=== PATIENT | male | born 1945 | race Caucasian/White ===

== ENCOUNTER 2017-06-27 07:11 | Inpatient (IN) ==
[2017-06-27] MEDS ORDERED: 0.9 % SODIUM CHLORIDE 250 ML IV SCH ×2 (07:15→12:30)
[2017-06-27] MEDS ORDERED: 0.9 % SODIUM CHLORIDE 1,000 ML IV ONE ×2 (07:29)
[2017-06-27 08:19] LABS: Basophils # (Auto) 0 K/mcL (0.0-0.3); Basophils % (Auto) 0.3 % (0.0-2.0); Eosinophils # (Auto) 0.1 K/mcL (0.0-0.7); Eosinophils % (Auto) 1.4 % (0.0-7.0); Granulocytes % (Auto) 74.2 % (38.0-78.0); Lymphocytes # (Auto) 1.1 K/mcL (1.5-4.8); Mean Cell Volume 88.1 fL (80.0-100.0); Mean Corpuscular HGB Conc 32.6 g/dL (31.0-36.0); Mean Corpuscular Hemoglobin 28.7 pg (26.0-34.0); Monocytes # (Auto) 0.6 K/mcL (0.1-0.9); Monocytes % (Auto) 8.1 % (1.0-12.0); Platelet Count 156 K/mcL (140-440); RBC 3.02 M/mcL (4.50-5.90); Red Cell Distribution Width 16.5 % (11.5-14.5)
[2017-06-27] MEDS: 0.9 % SODIUM CHLORIDE 1,000 ML IV SCH ×2 (08:22→20:36)
--- NOTE | 2017-06-27 08:52 | Emergency Department Note ---
GI Bleed HPI - General Chief complaint: Rectal Bleed Stated complaint: GI bleed after colonoscopy yesterday Time Seen by Provider: 06/27/17 08:37 Source: EMS Mode of arrival: EMS Limitations: no limitations - History of Present Illness HPI Narrative: This 79-year-old gentleman comes to the emergency room by private car after he was noted this morning to have some slurred speech, facial droop and weakness of his left upper extremity and left lower extremity. His remembers him going to bed around 10 PM last evening and he was normal at that time. This morning he apparently got up and went to the bathroom by himself but slumped into a chair that thumped against the wall and woke her up and this was around 5 AM. She helped him get to bed and bathroom again and back to bed. At breakfast around 7 or 730 he was choking significantly and could not seem to eat. He says he was having trouble swallowing. Because of these signs and symptoms was brought to the emergency room. He reports last evening that he felt like he swallowed something wrong but it was not food or saliva. - Related Data Home Medications Medication Instructions Recorded Confirmed allopurinol 300 mg tablet 300 mg PO QDAY 05/26/16 06/13/17 gabapentin 300 mg capsule 600 mg PO TID 05/26/16 06/13/17 insulin glargine SUB-Q QDAY 05/26/16 06/13/17 lisinopril 40 mg tablet 40 mg PO QDAY 05/26/16 06/13/17 metformin 1,000 mg tablet 1,000 mg PO BID 05/26/16 06/13/17 metoprolol tartrate 25 mg tablet 25 mg PO BID 05/26/16 06/13/17 mometasone INHALATION BID 05/26/16 06/13/17 rivaroxaban 20 mg tablet 20 mg PO QDAY 05/26/16 06/13/17 rosuvastatin 20 mg tablet 20 mg PO QDAY 05/26/16 06/13/17 spironolactone 25 mg tablet 25 mg PO QDAY 05/26/16 06/13/17 antiarthritic combination no.2 900 900 mg PO TID tab 08/01/16 06/13/17 mg tablet ascorbic acid (vitamin C) 500 mg 500 mg PO BID 08/01/16 06/13/17 tablet blood-glucose meter kit See Dose Instructions .ROUTE 08/01/16 06/13/17 .MEDSUPPLY calcium carbonate 600 mg (1,500 2 tab PO QDAY 08/01/16 06/13/17 mg)-vitamin D3 200 unit tablet cholecalciferol (vitamin D3) 1,000 1,000 unit PO QDAY tab 08/01/16 06/13/17 unit tablet cyclobenzaprine 10 mg tablet 10 mg PO HS PRN tab 08/01/16 06/13/17 insulin glargine 100 unit/mL 55 unit SUB-Q QHS ml 08/01/16 06/13/17 subcutaneous solution meclizine 25 mg tablet 25 mg PO TID PRN tab 08/01/16 06/13/17 pen needle, diabetic 31 gauge x See Dose Instructions .ROUTE 08/01/16 06/13/1710/25" .MEDSUPPLY psyllium seed (sugar) oral powder 2 tbsp PO QDAY each 08/01/16 06/13/17 Previous Rx's Medication Instructions Recorded omeprazole 40 mg capsule,delayed 40 mg PO QDAY #30 cap 10/24/16 release blood sugar diagnostic strips See Dose Instructions .ROUTE 01/11/17 .MEDSUPPLY #100 each MDD BID dapagliflozin 10 mg tablet 10 mg PO QAM #90 tab 03/29/17 tramadol 50 mg tablet 100 mg PO Q6H PRN #120 tab 05/01/17 Allergies Allergy/AdvReac Type Severity Reaction Status Date / Time No Known Drug Allergies Allergy Verified 06/27/17 07:12 Review of Systems Constitutional: Denies: fever, chills, sweats ENT ED: Reports: throat pain (Mild recently with upper respiratory infection.), other (Has recently been sneezing quite a bit.). Denies: congestion Cardiovascular: Denies: chest pain, palpitations Respiratory: Reports: shortness of breath (With just these last few days; an antihistamine did seem to help which he took yesterday or the day before.). Denies: cough, wheezes Gastrointestinal: Reports: vomiting (Dry heaves today.), diarrhea. Denies: abdominal pain Genitourinary: Reports: incontinence. 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 Denies: atrial fibrillation, CVA, myocardial infarction, thyroid disease Surgical history ED: Reports: other (Right orchiectomy) - Social History smoking status: Former smoker Alcohol use: Reports: None Physical Exam Limitations: no limitations General appearance: alert, in distress Head: atraumatic, normocephalic, other (Exception is lack of complete movement on the left corner of his mouth.) Eye: Present: EOMI, other (He is able to close his eyes tightly against resistance equally.) ENT: normal oropharynx, other (Tongue is midline. Left corner of the mouth does not drop equally compared to the right when he tries to smile.) Neck: Present: trachea midline. Absent: lymphadenopathy, thyromegaly Respiratory: Present: normal lung sounds bilaterally. Absent: respiratory distress, wheezes, stridor, accessory muscle use, prolonged expiratory phase Cardiovascular: Present: irregular rhythm. Absent: systolic murmur, diastolic murmur Abdominal: Present: soft. Absent: distention, tenderness, guarding, rebound, rigidity, organomegaly, mass Extremities: Absent: pedal edema, pretibial edema, calf tenderness Back: Present: spinous process tenderness. Absent: CVA tenderness (R), CVA tenderness (L) Neurological: Present: alert, oriented X3 Cranial nerves: EOM function (II, III, IV, ): Normal, facial sensation (V): Normal, facial palsy (VII): Abnormal Left, tongue deviation (XII): Normal Cerebellar function: finger to nose: Normal, heel to lopez: Normal Motor strength - LUE: 4/5 Motor strength - RUE: 4/5 Motor strength - LLE: 4/5 Motor strength - RLE: 4/5 Upper motor neuron exam: antoine neglect: Absent bilaterally, pronator drift: Absent bilaterally Sensory exam upper extremity: Normal: light touch Sensory exam lower extremity: Normal: light touch Psychiatric: Present: normal affect, normal mood, other (Mildly flat face ease) Skin: Present: warm, dry Course Vital Signs Pulse Rate 96 H 06/27/17 07:12 Respiratory Rate 18 06/27/17 07:12 Blood Pressure 77/46 06/27/17 07:12 Pulse Oximetry (%) 100 06/27/17 07:12 Temperature 97.5 F 06/27/17 07:29 Pulse Rate 76 06/27/17 08:16 Respiratory Rate 13 06/27/17 08:16 Blood Pressure 80/45 06/27/17 08:16 Pulse Oximetry (%) 97 06/27/17 08:16 GI Bleed - MDM Narrative Medical decision making narrative: Probable CVA but CT scan was negative. Some of his symptoms were reversing when he came back from CT scan. With his history of diabetes and the severity of his symptoms, he is a candidate for inpatient observation which I will discuss with Dr. Mandujano who will be coming on. ECG demonstrates atrial fibrillation which is likely to be new. He reports being on a blood thinner but it is not in his list. It is doubtful that he actually is on a specific blood thinner. - Lab Data Result diagrams: 06/27/17 07:44 Lab Results 06/27/17 06/27/17 06/27/17 Range/Units 07:44 07:44 07:44 WBC 6.9 (4.5-11.0) K/mcL RBC 3.02 L (4.50-5.90) M/mcL Hgb 8.7 L (13.5-16.5) g/dL Hct 26.6 L (41.0-55.0) % POC Hct 25.0 L (41.0-55.0) % MCV 88.1 (80.0-100.0) fL MCH 28.7 (26.0-34.0) pg MCHC 32.6 (31.0-36.0) g/dL RDW 16.5 H (11.5-14.5) % Plt Count 156 (140-440) K/mcL MPV 8.6 (7.4-10.4) fL Gran % 74.2 (38.0-78.0) % Lymph % (Auto) 16.0 (15.5-49.0) % [place] % (Auto) 8.1 (1.0-12.0) % Eos % (Auto) 1.4 (0.0-7.0) % Baso % (Auto) 0.3 (0.0-2.0) % Gran # 5.1 (1.8-8.0) K/mcL Lymph # (Auto) 1.1 L (1.5-4.8) K/mcL [place] # (Auto) 0.6 (0.1-0.9) K/mcL Eos # (Auto) 0.1 (0.0-0.7) K/mcL Baso # (Auto) 0 (0.0-0.3) K/mcL PT 35.8 H (11.9-14.5) sec INR 3.4 H (0.9-1.1) POC Sodium 141 (133-145) mmol/L POC Potassium 4.2 (3.3-5.1) mmol/L POC Chloride 106 (96-108) mmol/L POC Total CO2 23 (22-30) mmol/L POC BUN 13 (8-23) mg/dl POC Creatinine 1.1 (0.7-1.2) mg/dl POC Glucose 266 H (70-105) mg/dL POC WB Ioniz Calcium 1.18 (1.16-1.32) mmol/L Disposition Pt seen by DEBT COLLECTOR/PA only: No Clinical Impression: Left hemiparesis CVA (cerebral vascular accident) Qualifiers: CVA mechanism: unspecified Qualified Code(s): I63.9 - Cerebral infarction, unspecified A-fib Qualifiers: Atrial fibrillation type: unspecified Qualified Code(s): I48.91 - Unspecified atrial fibrillation Disposition: Still a Patient Referrals: Freddie Randolph DO [Primary Care Provider] -
--- NOTE | 2017-06-27 09:44 | Emergency Department Note ---
GI Bleed HPI - General Chief complaint: Rectal Bleed Stated complaint: GI bleed after colonoscopy yesterday Time Seen by Provider: 06/27/17 08:37 Source: EMS Mode of arrival: EMS Limitations: no limitations - Related Data Home Medications Medication Instructions Recorded Confirmed allopurinol 300 mg tablet 300 mg PO QDAY 05/26/16 06/13/17 gabapentin 300 mg capsule 600 mg PO TID 05/26/16 06/13/17 insulin glargine SUB-Q QDAY 05/26/16 06/13/17 lisinopril 40 mg tablet 40 mg PO QDAY 05/26/16 06/13/17 metformin 1,000 mg tablet 1,000 mg PO BID 05/26/16 06/13/17 metoprolol tartrate 25 mg tablet 25 mg PO BID 05/26/16 06/13/17 mometasone INHALATION BID 05/26/16 06/13/17 rivaroxaban 20 mg tablet 20 mg PO QDAY 05/26/16 06/13/17 rosuvastatin 20 mg tablet 20 mg PO QDAY 05/26/16 06/13/17 spironolactone 25 mg tablet 25 mg PO QDAY 05/26/16 06/13/17 antiarthritic combination no.2 900 900 mg PO TID tab 08/01/16 06/13/17 mg tablet ascorbic acid (vitamin C) 500 mg 500 mg PO BID 08/01/16 06/13/17 tablet blood-glucose meter kit See Dose Instructions .ROUTE 08/01/16 06/13/17 .MEDSUPPLY calcium carbonate 600 mg (1,500 2 tab PO QDAY 08/01/16 06/13/17 mg)-vitamin D3 200 unit tablet cholecalciferol (vitamin D3) 1,000 1,000 unit PO QDAY tab 08/01/16 06/13/17 unit tablet cyclobenzaprine 10 mg tablet 10 mg PO HS PRN tab 08/01/16 06/13/17 insulin glargine 100 unit/mL 55 unit SUB-Q QHS ml 08/01/16 06/13/17 subcutaneous solution meclizine 25 mg tablet 25 mg PO TID PRN tab 08/01/16 06/13/17 pen needle, diabetic 31 gauge x See Dose Instructions .ROUTE 08/01/16 06/13/1710/25" .MEDSUPPLY psyllium seed (sugar) oral powder 2 tbsp PO QDAY each 08/01/16 06/13/17 Previous Rx's Medication Instructions Recorded omeprazole 40 mg capsule,delayed 40 mg PO QDAY #30 cap 10/24/16 release blood sugar diagnostic strips See Dose Instructions .ROUTE 01/11/17 .MEDSUPPLY #100 each MDD BID dapagliflozin 10 mg tablet 10 mg PO QAM #90 tab 03/29/17 tramadol 50 mg tablet 100 mg PO Q6H PRN #120 tab 05/01/17 Allergies Allergy/AdvReac Type Severity Reaction Status Date / Time No Known Drug Allergies Allergy Verified 06/27/17 07:12 Review of Systems Constitutional: Denies: fever, chills, sweats ENT ED: Reports: throat pain (Mild recently with upper respiratory infection.), other (Has recently been sneezing quite a bit.). Denies: congestion Cardiovascular: Denies: chest pain, palpitations Respiratory: Reports: shortness of breath (With just these last few days; an antihistamine did seem to help which he took yesterday or the day before.). Denies: cough, wheezes Gastrointestinal: Reports: vomiting (Dry heaves today.), diarrhea. Denies: abdominal pain Genitourinary: Reports: incontinence. 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 Denies: atrial fibrillation, CVA, myocardial infarction, thyroid disease Surgical history ED: Reports: other (Right orchiectomy) - Social History smoking status: Former smoker Alcohol use: Reports: None Physical Exam Limitations: no limitations General appearance: alert, in distress Course Vital Signs Pulse Rate 96 H 06/27/17 07:12 Respiratory Rate 18 06/27/17 07:12 Blood Pressure 77/46 06/27/17 07:12 Pulse Oximetry (%) 100 06/27/17 07:12 Temperature 97.5 F 06/27/17 07:29 Pulse Rate 86 06/27/17 09:11 Respiratory Rate 12 06/27/17 09:11 Blood Pressure 98/80 06/27/17 09:11 Pulse Oximetry (%) 100 06/27/17 09:11 GI Bleed - [facility] Narrative Medical decision making narrative: pt of dr Bermeo transfer to my care at 0900. has lower gi bleed post colonscopy yestgerday. Bp is 91 /38u at this time . getting [address] Aguilar contgacted and to be admitted to hospitalist. Dr Oates contacted and pt to be admitttged. there is no antidote of his eliquis. SAnesthesia contacted for cental line per DR oates - Lab Data Result diagrams: 06/27/17 07:44 Lab Results 06/27/17 06/27/17 06/27/17 Range/Units 07:44 07:44 07:44 WBC 6.9 (4.5-11.0) K/mcL RBC 3.02 L (4.50-5.90) M/mcL Hgb 8.7 L (13.5-16.5) g/dL Hct 26.6 L (41.0-55.0) % POC Hct 25.0 L (41.0-55.0) % MCV 88.1 (80.0-100.0) fL MCH 28.7 (26.0-34.0) pg MCHC 32.6 (31.0-36.0) g/dL RDW 16.5 H (11.5-14.5) % Plt Count 156 (140-440) K/mcL MPV 8.6 (7.4-10.4) fL Gran % 74.2 (38.0-78.0) % Lymph % (Auto) 16.0 (15.5-49.0) % [place] % (Auto) 8.1 (1.0-12.0) % Eos % (Auto) 1.4 (0.0-7.0) % Baso % (Auto) 0.3 (0.0-2.0) % Gran # 5.1 (1.8-8.0) K/mcL Lymph # (Auto) 1.1 L (1.5-4.8) K/mcL [place] # (Auto) 0.6 (0.1-0.9) K/mcL Eos # (Auto) 0.1 (0.0-0.7) K/mcL Baso # (Auto) 0 (0.0-0.3) K/mcL PT 35.8 H (11.9-14.5) sec INR 3.4 H (0.9-1.1) POC Sodium 141 (133-145) mmol/L POC Potassium 4.2 (3.3-5.1) mmol/L POC Chloride 106 (96-108) mmol/L POC Total CO2 23 (22-30) mmol/L POC BUN 13 (8-23) mg/dl POC Creatinine 1.1 (0.7-1.2) mg/dl POC Glucose 266 H (70-105) mg/dL POC WB Ioniz Calcium 1.18 (1.16-1.32) mmol/L 06/27/17 Range/Units 09:34 WBC (4.5-11.0) K/mcL RBC (4.50-5.90) M/mcL Hgb (13.5-16.5) g/dL Hct (41.0-55.0) % POC Hct 27.0 L (41.0-55.0) % MCV (80.0-100.0) fL MCH (26.0-34.0) pg MCHC (31.0-36.0) g/dL RDW (11.5-14.5) % Plt Count (140-440) K/mcL MPV (7.4-10.4) fL Gran % (38.0-78.0) % Lymph % (Auto) (15.5-49.0) % [place] % (Auto) (1.0-12.0) % Eos % (Auto) (0.0-7.0) % Baso % (Auto) (0.0-2.0) % Gran # (1.8-8.0) K/mcL Lymph # (Auto) (1.5-4.8) K/mcL [place] # (Auto) (0.1-0.9) K/mcL Eos # (Auto) (0.0-0.7) K/mcL Baso # (Auto) (0.0-0.3) K/mcL PT (11.9-14.5) sec INR (0.9-1.1) POC Sodium 140 (133-145) mmol/L POC Potassium 4.5 (3.3-5.1) mmol/L POC Chloride 106 (96-108) mmol/L POC Total CO2 23 (22-30) mmol/L POC BUN 13 (8-23) mg/dl POC Creatinine 0.9 (0.7-1.2) mg/dl POC Glucose 249 H (70-105) mg/dL POC WB Ioniz Calcium 1.14 L (1.16-1.32) mmol/L Disposition Pt seen by ECOMMERCE MERCHANDISING MANAGER/PA only: No Clinical Impression: GI bleed A-fib Qualifiers: Atrial fibrillation type: unspecified Qualified Code(s): I48.91 - Unspecified atrial fibrillation Clinical Impression: (Ruled Out): CVA (cerebral vascular accident), Left hemiparesis Disposition: Xfer As Inpt ([facility]) Referrals: Freddie Randolph DO [Primary Care Provider] -
[2017-06-27] MEDS ORDERED: NOREPINEPHRINE BITARTRATE 16 MG in 0.9 % SODIUM CHLORIDE 234 ML IV PRN (12:30)
[2017-06-27] MEDS ORDERED: ONDANSETRON 4 MG/2 ML VIAL IV PRN (12:30)
[2017-06-27] MEDS ORDERED: traZODone HCL 50 MG TABLET PO PRN (12:30)
[2017-06-27] MEDS ORDERED: VASOPRESSIN 20 UNIT in DEXTROSE 5% IN WATER 99 ML IV PRN (12:30)
[2017-06-27] MEDS ORDERED: PANTOPRAZOLE 40 MG VIAL IV ONE (12:30)
[2017-06-27] MEDS ORDERED: MAGNESIUM SULFATE 2 GM/50 ML BAG IV PRN (12:30)
[2017-06-27] MEDS ORDERED: POTASSIUM CHLORIDE 20 MEQ PACKET PO PRN (12:30)
[2017-06-27] MEDS: LACTATED RINGERS 1,000 ML IV SCH ×3 (13:17→22:44)
--- NOTE | 2017-06-27 13:58 | History and Physical Report ---
DATE OF ADMISSION: 06/27/2017 PRIMARY CARE PHYSICIAN: Freddie Randolph DO OPERATIONS ADMINISTRATIVE ASSISTANT: Juan Barron MD REASON FOR ADMISSION: GI bleed, low blood pressure. HISTORY OF CHIEF COMPLAINT: The patient is a 71-year-old who underwent a scheduled elective colonoscopy as an outpatient by Dr. Barron and subsequently had multiple polyps removed. The patient postoperatively was doing well until he started having significant abdominal cramping with bloody diarrhea that started early this morning. He had had three episodes of [place] bloody diarrhea with lightheadedness and subsequently came to the ER. Initial blood pressure was 62/42. The patient is on Xarelto; however, there is no antidote available at this time and patient was rapidly infused with 3 liters of crystalloids via bore IV access and stat blood transfusion was ordered. The patient has been tachycardic but after crystalloid infusion his blood pressure systolics improved to mid 70s. Subsequently, GI was consulted and we were advised to hospitalize the patient and the patient would undergo repeat scope by Dr. aBrron. Hospitalist Service was consulted. At the time of examination, the patient is alert and oriented. He denies lightheadedness or vision changes. He has had two bloody bowels since arrival to the Emergency Room. He has been on rivaroxaban and the last dose was yesterday. He denies chest pain, palpitations, shortness of breath, sweating. He denies prior history of GERD or bleeding disorders. He denies excessive alcoholism. REVIEW OF SYSTEMS: Ten-point review of system was performed and negative except the ones discussed above. PAST MEDICAL HISTORY: 1. History of atrial fibrillation, currently on anticoagulation. 2. Neuropathy. 3. Diabetes mellitus type 2. 4. Hypertension. 5. Hyperlipidemia. 6. Reactive airway disease. 7. Gout. CURRENT MEDICATIONS: 1. Gabapentin 600 mg t.i.d. 2. Allopurinol 300 mg daily. 3. Lisinopril 40 mg daily. 4. Glargine subq, dose unclear. 5. Metformin 1000 mg b.i.d. 6. Metoprolol 25 mg b.i.d. 7. Mometasone inhaled. 8. Rivaroxaban 20 mg daily. 9. Rosuvastatin 20 mg daily. 10. Spironolactone 25 mg. 11. Meclizine 25 mg p.r.n. ALLERGIES: None significant. SOCIAL HISTORY: The patient is and lives with his , worked multiple jobs and used to be in the [employer]. No history of smoking or alcoholism. He is retired. PAST SURGICAL HISTORY: History of right orchiectomy. FAMILY HISTORY: None significant. PHYSICAL EXAMINATION: GENERAL: The patient is alert, oriented and nondistressed. BMI 34. Height 5 feet 9 inches. VITAL SIGNS: Blood pressure improving from 62/42 to 87/51, respiration rate 12, temperature 97.5, pulse 80 to 120, variable AFIB, sats 100% on room air. HEENT: Pupils symmetric. Oral cavity is dry. No ear or nose discharge. Head is normocephalic and atraumatic. NECK: No lymphadenopathy. HEART: S1, S2 irregular rhythm. Chest is otherwise clear to auscultation. ABDOMEN: Soft and nontender. LOWER EXTREMITIES: No cyanosis or clubbing. No joint swelling. SKIN: No suspicious lesion, normal range of motion of the joints with no joint swelling or erythema. PSYCH: Alert and cooperative. NEURO: Nonfocal, moving all four extremities. LABS AND IMAGING: White count 6.9, hemoglobin 8.7, platelets 156. INR 3.4. Sodium 141, potassium 4.2, creatinine 1.1, BUN 13. EKG: Atrial fibrillation. ASSESSMENT AND PLAN: A 71-year-old with massive GI bleed and hemorrhagic shock. 1. Hemorrhagic shock. Start transfusion protocol, 2 units stat followed by another 2 units, q.4h. H and H, crystalloids and vasopressors to keep MAP over 65. 2. Lower GI bleed likely from about biopsy sites-GI consulted for transfer to ICU. Continue close hemodynamic monitoring. 3. Acute blood loss anemia. Continue blood transfusion as indicated. Continue serial hemoglobin check. 4. For prior medical issues at this time, all home medications will be held. 5. Atrial fibrillation. Continue rate control measures, anticoagulation at this time will be held in light of GI bleed. PLAN FOR TODAY: 1. Admit as inpatient in light of hemorrhagic shock, GI bleed, and blood loss anemia. 2. GI consult. 3. Transfusion protocol with vasopressors and crystalloids so we can maintain MAP at goal. Overall, a high-complexity admit with NEWTOK score of over 16, signifying high risk mortality from persistent GI bleed and blood loss anemia. The patient will be admitted to ICU. Total time spent on history and physical in excess of 60 minutes and additional 40 minutes critical care time spent in stabilizing and transfer of patient to ICU and continued hemodynamic monitoring, management and pressors. AA:moses Job ID: [id number] Doc ID: [id number] Reyes Randolph DO
[2017-06-27] MEDS: NOREPINEPHRINE BITARTRATE 16 MG in 0.9 % SODIUM CHLORIDE 234 ML IV SCH (15:20)
[2017-06-27] MEDS: 0.9 % SODIUM CHLORIDE 10 ML SYRINGE IV SCH ×2 (15:21→22:43)
[2017-06-27] MEDS: 0.9 % SODIUM CHLORIDE 500 ML IV SCH (15:27)
[2017-06-27] MEDS ORDERED: KETAMINE 10 MG/ML ML IV PRN (16:07)
[2017-06-27] MEDS ORDERED: MIDAZOLAM 2 MG/2 ML VIAL IV SCH (16:15)
[2017-06-27] MEDS ORDERED: PROPOFOL 200 MG/20 ML VIAL IV SCH (16:15)
[2017-06-27] MEDS ORDERED: MIDAZOLAM 2 MG/2 ML VIAL ONE (16:24)
[2017-06-27] MEDS ORDERED: PROPOFOL 20 ML IV ONE (16:24)
[2017-06-27] MEDS ORDERED: METOPROLOL TARTRATE 5 MG/5 ML VIAL IV ONE (18:18)
[2017-06-27] MEDS ORDERED: EPINEPHrine 1 MG/ML AMPUL ONE ×2 (18:39→19:01)
--- NOTE | 2017-06-27 19:22 | General Surgery Progress Note ---
Subjective Narrative: Note initiated : 06/27/17 at 7:19 pm Service Date, if different from initiated Date: [] Patient: Oz Cardozo 71 y/o M admitted on 06/27/17 for GI bleed after colonoscopy yesterday. Chief Complaint: [LGIB] summoned to bedside during c scope for BRBPR. staff experiencing some difficulty with sedation, pt moving. Objective Temp Pulse Resp BP Pulse Ox 99.9 F H 137 H 21 130/107 99 06/27/17 16:03 06/27/17 18:46 06/27/17 18:46 06/27/17 18:46 06/27/17 18:46 - Additional Data Intake & Output - Last 24 hours: Intake & Output 06/25/17 06/26/17 06/27/17 06/28/17 05:59 05:59 05:59 05:59 Intake Total 4476 / 4476 Output Total 825 / 825 Balance 3651 / 3651 Weight 220 lb 4.8 oz - Labs 06/27/17 16:21 Assessment and Plan - Narrative A/P Narrative: Assist with sedation for prolonged c scope exam with intervention for GIB. See sedation record. - Time Spent With Patient Total time spent is greater than 50% in coordination of care (as documented) at patient's floor/unit and/or counseling patient: Greater than 35 minutes (This is not an anesthesia charge, unofficial consult and bedside assist only.)
[2017-06-27] MEDS ORDERED: EPINEPHrine 1 MG/ML AMPUL IJ ONE (19:38)
[2017-06-27] MEDS: SENNOSIDES/DOCUSATE SODIUM 1 TAB TABLET PO SCH (20:36)
[2017-06-28] MEDS: 0.9 % SODIUM CHLORIDE 10 ML SYRINGE IV SCH ×3 (04:06→21:09)
[2017-06-28 05:20] LABS: Mean Cell Volume 88.4 fL (80.0-100.0); Mean Corpuscular Hemoglobin 29.1 pg (26.0-34.0); Platelet Count 143 K/mcL (140-440); RBC 2.64 M/mcL (4.50-5.90); Red Cell Distribution Width 16.6 % (11.5-14.5)
[2017-06-28 05:40] LABS: ALT/SGPT 11 U/l (0-40); Albumin 2.3 gm/dL (3.2-5.2); Alkaline Phosphatase 57 U/L (39-117); Bilirubin,Direct < 0.2 mg/dL (0.0-0.3); Blood Urea Nitrogen 13 mg/dl (8-23); Gamma Glutamyl Transpeptidase 50 U/L (8-61); Magnesium 1.2 mg/dL (1.6-2.5); Uric Acid 4.1 mg/dL (2.5-8.0)
[2017-06-28 06:00] LABS: Anisocytosis 1+ (NONE SEEN); Band Neutrophils % 2 % (0-10); Eosinophils % (Manual) 1 % (0-7); Lymphocytes % 17 % (15-49); Monocytes % (Manual) 7 % (1-12); Ovalocytes FEW (NONE SEEN); Platelet Estimate NORMAL (NORMAL); RBC Morphology ABNORM (NORMAL); Segmented Neutrophils % 73 % (38-78)
[2017-06-28] MEDS ORDERED: FUROSEMIDE 20 MG/2 ML VIAL IV ONE (06:03)
[2017-06-28] MEDS: 0.9 % SODIUM CHLORIDE 250 ML IV SCH ×2 (06:15→09:00)
--- NOTE | 2017-06-28 07:24 | Operative Note ---
DATE OF OPERATION: 06/27/2017 PREPROCEDURE DIAGNOSIS: Lower gastrointestinal bleed, probably from polypectomy site in cecum, ascending colon area. POSTPROCEDURE DIAGNOSES: Bleeding from polypectomy site from polyp that was only partially removed. Nearby there was an ulcerated polypectomy site that was not bleeding, but was injected because there was a pigmented protuberance. PROCEDURE: Colonoscopy with control of bleeding. INSTRUMENT USED: Olympus CRISTAL CF Q180AL colonoscope. SPECIMENS OBTAINED: None. INDICATIONS FOR PROCEDURE: The patient is a 71-year-old gentleman referred by Dr. Freddie Randolph. The patient did have a colonoscopy at [facility] yesterday, the . He had about 10 polyps. There were some larger ones in the cecum, ascending colon area. One did have some friability and partially ulcerated area that raised a little concern regarding high grade dysplasia or cancer. This one was only partially removed, a large stalk was removed. Today, I did call the pathologist and they did read it and give me a report a little earlier than usual. This seemed to have villous characteristics, but no high grade dysplasia. The patient did start bleeding and did present to [facility] ER. Sometimes after 8 o'clock in the morning I was advised of the situation. He seemed to be responding to fluid and blood resuscitation. He later was started on some Levophed or other pressure support. Because of the persistent bleeding, endoscopy was indicated. We did discuss the possibility of having Dr. Granda, Interventional Radiologist find and treat the bleeding site if we were not successful endoscopically. Because of the patient's condition, he was not given a thorough prep-he was just given an enema. Some additional past medical history does include atrial fibrillation. The patient initially told us he was not on any blood thinner but we did find that he was on Xarelto. He also does have some reflux, type 2 diabetes, hypertension, and elevated cholesterol. Please see H and P for additional details. It is interesting to note that his INR was 3.4. However, this is not very reliable lab as far as determining his degree of anticoagulation. Hemoglobin today was 8.7. Back in March it was 11.6. I believe the patient did bleed a significant amount. He initially seemed to do quite well. However, he did start getting tachycardic and hypertensive even though he was given propofol. Dr. Pritchard and Dr. Mcbride, Anesthesiologist were advised of the situation. Dr. Mcbride did give him some beta nasrin to slow his heart rate and gave additional propofol. The patient tolerated the procedure reasonably well. No complications were noted during this procedure. IV MEDICATIONS USED: 1 mg of Versed, 850 mg of propofol, 36 mL of hypertonic saline/epinephrine. Please see anesthesia record or nurse's records regarding additional medications including the beta nasrin, metoprolol. INFORMED CONSENT: The procedure was reviewed with the patient. The patient had no further questions and accepts the risks and benefits thereof. One of the risks that were discussed included . Additional risks that were also discussed included bleeding, reaction to medication, possible perforation and possible need for surgery. FINDINGS: RECTUM: Blood was noted. SIGMOID TO HEPATIC FLEXURE AND DISTAL ASCENDING COLON: Dark blood was noted. PROXIMAL ASCENDING COLON: There was fresher blood noted. This area was washed as I started getting the general location of bleeding site. Hypertonic saline/epinephrine was injected. There seemed to be some persistent bleeding site at the large polyp that I believe was only partially removed. This persisted despite injection of hypertonic saline/epinephrine mixture. Two resolution clips and some additional hypertonic saline/epinephrine seemed to stop the bleeding. This area was washed and watched for a while. No further bleeding was noted. The endoscope was withdrawn, trying to suction as much air as possible; however, with all his blood clots I was not very successful in removing most of the air; however, the patient during the exam did pass significant air. I believe he probably will be able to expel the air without too much difficulty. RECOMMENDATIONS: The patient will be observed overnight. Dr. Pritchard will manage the patient. If he does have recurrent bleeding, repeat endoscopy may be necessary. If he has massive bleeding, we may need to consider transfer to [facility] for Dr. Granda, Interventional Radiologist to proceed. The clips may help give him some guidance. If possible I would like to hold off on the anticoagulation-Xarelto for about 10 to 14 days. I will talk with the patient and his about the challenge of removing these polyps endoscopically versus considering surgery with a right hemicolectomy. There are two polyps still that have not been removed at all and there is the remainder of this large polyp that was estimated to be about 3 to 4 cm in size. CRD:moses Job ID: [id number] Doc ID: [id number] Juan Groves MD
[2017-06-28] MEDS: LACTATED RINGERS 1,000 ML IV SCH (08:01)
[2017-06-28] MEDS: ACETAMINOPHEN 325 MG TABLET PO PRN (09:59)
--- NOTE | 2017-06-28 11:41 | Internal Med Progress Note ---
Medical - PN: Subj Patient information: Note initiated : 06/28/17 at 11:37 am Service Date, if different from initiated Date: [] Patient: Oz Cardozo 71 y/o M admitted on 06/27/17 for Massive GI Bleed and Hemorrhagic Shock. Chief Complaint: [] Interval history: 06/27-atient admitted with hemorrhagic shock secondary to postprocedure colonic bleed. patient has been on hisrivaroxaban which has been discontinued On admit. status post 2 units blood transfusion. Map at goal on vasopressors after 4 L crystalloid bolus. patient critically ill. Emergent endoscopy evaluation sought with Dr. Romero GI.On every 4 hemoglobin checks. 3 bloody bowels since admission Patient underwent colonoscopy in the evening with identification of active bleed or and subsequent cauterization/hemostasis achieved by GI. Hemoglobin dropped from 10-8.8 . on vasopressors to keep map at goal. Status post additional 2 L crystalloid bolus. Patient on 3 L oxygen. Remains critically ill. 06/28- hemoglobin dropped to 7.8. Additional 2 units blood transfusion ordered. 2 additional bloody bowels since last night. Continue every 4 hemoglobin checks. discussed with patient that if If persistent bleeding patient will be transferred [facility] assisted embolization. patient remains critically ill in light of hemorrhagic shock requiring pressors - Constitutional Vitals: Vital Signs Temp Pulse Resp BP Pulse Ox 99.1 F H 92 H 14 88/53 100 06/28/17 08:02 06/28/17 08:00 06/28/17 08:02 06/28/17 08:02 06/28/17 08:02 Period Temp Pulse Resp BP Sys/Sherman Pulse Ox Last 24 Hr 97.1 F-99.9 F 50-155 10-34 74-187/48-158 88-100 Intake and Output 06/27/17 06/28/17 06/28/17 21:59 05:59 13:59 Intake Total 1120 / 1120 1350 / 1350 Output Total 305 / 305 775 / 775 0 / 0 Balance 815 / 815 -775 / -775 1350 / 1350 Weight 221 lb 14.4 oz Intake & Output: Intake & Output 06/27/17 06/28/17 06/28/17 21:59 05:59 13:59 Intake Total 1120 / 1120 1350 / 1350 Output Total 305 / 305 775 / 775 0 / 0 Balance 815 / 815 -775 / -775 1350 / 1350 Weight 221 lb 14.4 oz Intake: IV 1120 / 1120 1000 / 1000 Sodium Chloride 0.9% 500 ml @ 111 / 111 20 mls/hr IV .Q24H [facility] Rx#: [id number] Lactated Ringers 1,000 ml @ 100 1000 / 1000 1000 / 1000 mls/hr IV .Q10H [facility] Rx#: [id number] Levophed 16 mg In Sodium 9 / 9 0 / 0 Chloride 0.9% 234 ml @ 10 MCG/ MIN 9.37 mls/hr IV Q24H [facility] Rx# :[id number] Blood Product 350 / 350 Output: Void Amount 200 / 200 500 / 500 0 / 0 Stool 105 / 105 275 / 275 Other: # Bowel Movements 0 General appearance: no acute distress Exam: anxious pallor noted minimally labored breathing On 3 L oxygen Abdomen distended but soft minimal lymphedema Medical - PN: Obj Da - Labs CBC & Chem 7: 06/28/17 04:03 06/28/17 04:03 Labs: Abnormal Lab Results 06/28/17 06/28/17 06/28/17 04:03 04:03 00:25 WBC 11.8 H RBC 2.64 L Hgb 7.7 L 8.5 L Hct 23.4 L POC Hct RDW 16.6 H Lymph # (Auto) RBC Morphology Abnorm A Anisocytosis 1+ A Ovalocytes Few A PT INR Chloride 109 H Glucose 152 H POC Glucose Calcium 7.7 L POC WB Ioniz Calcium Magnesium 1.2 L Total Protein 4.5 L Albumin 2.3 L 06/27/17 06/27/17 06/27/17 19:59 16:21 13:22 WBC RBC Hgb 8.8 L 10.1 L 10.6 L Hct POC Hct RDW Lymph # (Auto) RBC Morphology Anisocytosis Ovalocytes PT INR Chloride Glucose POC Glucose Calcium POC WB Ioniz Calcium Magnesium Total Protein Albumin 06/27/17 06/27/17 06/27/17 09:34 07:44 07:44 WBC RBC 3.02 L Hgb 8.7 L Hct 26.6 L POC Hct 27.0 L 25.0 L RDW 16.5 H Lymph # (Auto) 1.1 L RBC Morphology Anisocytosis Ovalocytes PT INR Chloride Glucose POC Glucose 249 H 266 H Calcium POC WB Ioniz Calcium 1.14 L Magnesium Total Protein Albumin 06/27/17 07:44 WBC RBC Hgb Hct POC Hct RDW Lymph # (Auto) RBC Morphology Anisocytosis Ovalocytes PT 35.8 H INR 3.4 H Chloride Glucose POC Glucose Calcium POC WB Ioniz Calcium Magnesium Total Protein Albumin Meds: Medications Acetaminophen (Tylenol) 650 mg PO Q4-6HP PRN PRN Reason: PAIN/FEVER > 101 Last Admin: 06/28/17 09:59 Dose: 650 mg Lactated Ringer's (Lactated Ringers) 1,000 mls @ 100 mls/hr IV .Q10H [facility] Stop: 06/28/17 18:29 Last Admin: 06/28/17 08:01 Dose: 100 mls/hr Magnesium Sulfate (Magnesium Sulfate) 2 gm in 50 mls @ 50 mls/hr IV UD PRN PRN Reason: MG = or < 1.7 Last Admin: 06/28/17 05:47 Dose: 50 mls/hr Vasopressin 20 unit/ Dextrose 100 mls @ 12 mls/hr IV Q8HP PRN; Protocol; 0.04 UNIT/MIN PRN Reason: Hypotension Norepinephrine Bitartrate 16 (mg/ Sodium Chloride) 250 mls @ 9.37 mls/hr IV Q24H [facility]; 10 MCG/MIN PRN Reason: Protocol Last Titration: 06/28/17 09:00 Dose: 2 mcg/min, 1.87 mls/hr Sodium Chloride (Sodium Chloride 0.9%) 500 mls @ 20 mls/hr IV .Q24H [facility] Last Infusion: 06/27/17 21:00 Dose: 0 mls/hr Sodium Chloride (Sodium Chloride 0.9%) 250 mls @ 20 mls/hr IV .[id number] [facility] Stop: 06/28/17 18:44 Last Admin: 06/28/17 09:00 Dose: 20 mls/hr Ondansetron HCl (Zofran) 4 mg IV Q4-6HP PRN PRN Reason: Nausea And Vomiting Potassium Chloride (Klor-Con) 40 meq PO DAILYP PRN PRN Reason: K+ < 3.5 Senna/Docusate Sodium (Senna Plus Tablet) 1 tab PO HS [facility] Last Admin: 06/27/17 20:36 Dose: Not Given Sodium Chloride (Saline Flush) 10 ml IV Q8 [facility] Last Admin: 06/28/17 04:06 Dose: 10 ml Trazodone HCl (Desyrel) 50 mg PO HSP PRN PRN Reason: Insomnia Medical - PN: A/P - Time Spent With Patient Total time spent is greater than 50% in coordination of care (as documented) at patient's floor/unit and/or counseling patient: 25 - 35 minutes (critical care time) (1) Postoperative hemorrhagic shock Status: Acute Assessment and plan: * post colonoscopy hemorrhagic shock secondary to biopsy site bleeding- status post 5 is crystalloid/4 units blood transfusion and ongoing pressors to keep map at goal. Continue close ICU monitoring. High-risk mortality * acute blood loss anemia-status post 4 unit blood transfusion. Continue serial hemoglobin checks * lower GI bleed-status post repeat colonoscopy and cauterization of bleeding vessel by GI. if persistent will need intervention radiology assisted embolization/transfer to tertiary Center. * Hypoxic respiratory insufficiency secondary to pulmonary congestion fromcrystalloid and colloid infusion for underlying hemorrhagic shock-start diuresis once active bleeding. * atrial fibrillation-continue metoprolol IV as needed for rate control * Anticoagulation for CVA prophylaxis-rivaroxaban held in light of active GI bleed * DM type II continue sliding scale insulin Plan * Continue ICU management * vasopressors blood transfusion crystalloids to keep map at goal * serial hemoglobin check * transfer to tertiary Center if persistent bleeding Requiring intervention radiology assisted embolization Current Visit: Yes - Narrative A/P Narrative: Assist with sedation for prolonged c scope exam with intervention for GIB. See sedation record. Medical - PN: Qual - Stroke Symptom Onset Unknown: No - VTE Deep Vein Thrombosis/Pulmonary Embolism Present on Admission: No
[2017-06-28] MEDS: NOREPINEPHRINE BITARTRATE 16 MG in 0.9 % SODIUM CHLORIDE 234 ML IV SCH (13:13)
[2017-06-28] MEDS: 0.9 % SODIUM CHLORIDE 500 ML IV SCH (16:49)
[2017-06-28] MEDS: INSULIN LISPRO 1 UNIT/0.01 ML UNIT SQ SCH (20:50)
[2017-06-28] MEDS: SENNOSIDES/DOCUSATE SODIUM 1 TAB TABLET PO SCH (21:08)
[2017-06-29] MEDS: ACETAMINOPHEN 325 MG TABLET PO PRN (01:29)
[2017-06-29] MEDS: 0.9 % SODIUM CHLORIDE 10 ML SYRINGE IV SCH ×3 (05:41→21:17)
[2017-06-29 06:21] LABS: Mean Cell Volume 88.6 fL (80.0-100.0); Mean Corpuscular HGB Conc 33.5 g/dL (31.0-36.0); Mean Corpuscular Hemoglobin 29.7 pg (26.0-34.0); Platelet Count 136 K/mcL (140-440); RBC 3.09 M/mcL (4.50-5.90); Red Cell Distribution Width 15.9 % (11.5-14.5)
[2017-06-29 06:33] LABS: ALT/SGPT 10 U/l (0-40); Albumin 2.9 gm/dL (3.2-5.2); Albumin/Globulin Ratio 1.2 (1.0-2.3); Alkaline Phosphatase 66 U/L (39-117); Bilirubin,Direct 0.2 mg/dL (0.0-0.3); Blood Urea Nitrogen 11 mg/dl (8-23); Gamma Glutamyl Transpeptidase 50 U/L (8-61); Magnesium 1.4 mg/dL (1.6-2.5); Uric Acid 4.7 mg/dL (2.5-8.0)
[2017-06-29 07:34] LABS: Anisocytosis OCC (NONE SEEN); Band Neutrophils % 1 % (0-10); Lymphocytes % 22 % (15-49); Monocytes % (Manual) 5 % (1-12); Platelet Estimate NORMAL (NORMAL); RBC Morphology NORMAL (NORMAL); Segmented Neutrophils % 72 % (38-78)
[2017-06-29] MEDS: INSULIN LISPRO 1 UNIT/0.01 ML UNIT SQ SCH ×4 (08:34→21:13)
[2017-06-29] MEDS ORDERED: NOREPINEPHRINE BITARTRATE 16 MG in 0.9 % SODIUM CHLORIDE 234 ML IV PRN (09:15)
--- NOTE | 2017-06-29 10:01 | Internal Med Progress Note ---
Medical - PN: Subj Patient information: Note initiated : 06/29/17 at 9:57 am Service Date, if different from initiated Date: [] Patient: Oz Cardozo 71 y/o M admitted on 06/27/17 for Massive GI Bleed and Hemorrhagic Shock. Chief Complaint: [] Interval history: 06/27-atient admitted with hemorrhagic shock secondary to postprocedure colonic bleed. patient has been on hisrivaroxaban which has been discontinued On admit. status post 2 units blood transfusion. Map at goal on vasopressors after 4 L crystalloid bolus. patient critically ill. Emergent endoscopy evaluation sought with Dr. Romero GI.On every 4 hemoglobin checks. 3 bloody bowels since admission Patient underwent colonoscopy in the evening with identification of active bleed or and subsequent cauterization/hemostasis achieved by GI. Hemoglobin dropped from 10-8.8 . on vasopressors to keep map at goal. Status post additional 2 L crystalloid bolus. Patient on 3 L oxygen. Remains critically ill. 06/28- hemoglobin dropped to 7.8. Additional 2 units blood transfusion ordered. 2 additional bloody bowels since last night. Continue every 4 hemoglobin checks. discussed with patient that if If persistent bleeding patient will be transferred to tertiary Center[facility] intervention[facility]ology assisted embolization. patient remains critically ill in light of hemorrhagic shock requiring pressors 06/29- patient doing well. One bloody bowel last night. Hemoglobin up to 9. Status post 4 unit transfusion. No lightheadedness dizziness chest pain. Off oxygen. Advancing diet from clears to full liquids to soft diet today. anticoagulation on hold. Await callback from primary care physician about discussions of the initiation of anticoagulation. no concerns per staffl no fever chillsl transfer to medical floor - Constitutional Vitals: Vital Signs Temp Pulse Resp BP Pulse Ox 98.4 F 73 16 128/75 97 06/29/17 07:02 06/29/17 07:04 06/29/17 07:04 06/29/17 07:02 06/29/17 07:04 Period Temp Pulse Resp BP Sys/Sherman Pulse Ox Last 24 Hr 98.1 F-99.1 F 53-95 12-26 88-150/50-81 93-100 Intake and Output 06/28/17 06/29/17 06/29/17 21:59 05:59 13:59 Intake Total 1407 / 1407 Output Total 625 / 625 525 / 525 501 / 501 Balance 782 / 782 -525 / -525 -501 / -501 Weight 221 lb 12.8 oz Intake & Output: Intake & Output 06/28/17 06/29/17 06/29/17 21:59 05:59 13:59 Intake Total 1407 / 1407 Output Total 625 / 625 525 / 525 501 / 501 Balance 782 / 782 -525 / -525 -501 / -501 Weight 221 lb 12.8 oz Intake: IV 1157 / 1157 Sodium Chloride 0.9% 250 ml @ 157 / 157 20 mls/hr IV .[id number] [facility] Rx#: [id number] Lactated Ringers 1,000 ml @ 100 1000 / 1000 mls/hr IV .Q10H [facility] Rx#: [id number] Oral 250 / 250 Output: Void Amount 625 / 625 375 / 375 500 / 500 # of times incontinent of urine 1 / 1 Stool 150 / 150 Other: # Voids 1 1 General appearance: cooperative, no acute distress Exam: no anxiety alert and oriented Nondistended nontender abdomen Nonlabored breathing no lymphedema or pallor Medical - PN: Obj Da - Labs CBC & Chem 7: 06/29/17 08:04 06/29/17 04:00 Labs: Abnormal Lab Results 06/29/17 06/29/17 06/29/17 08:04 04:00 04:00 WBC RBC 3.09 L Hgb 9.0 L 9.2 L Hct 27.4 L POC Hct RDW 15.9 H Plt Count 136 L Lymph # (Auto) RBC Morphology Anisocytosis Occ A Ovalocytes PT INR Chloride Glucose 131 H POC Glucose Calcium POC WB Ioniz Calcium Magnesium 1.4 L Total Bilirubin 1.1 H Total Protein 5.3 L Albumin 2.9 L 06/28/17 06/28/17 06/28/17 23:35 22:18 15:00 WBC RBC Hgb 9.0 L 6.9 L* 9.0 L Hct POC Hct RDW Plt Count Lymph # (Auto) RBC Morphology Anisocytosis Ovalocytes PT INR Chloride Glucose POC Glucose Calcium POC WB Ioniz Calcium Magnesium Total Bilirubin Total Protein Albumin 06/28/17 06/28/17 06/28/17 10:35 04:03 04:03 WBC 11.8 H RBC 2.64 L Hgb 9.4 L 7.7 L Hct 23.4 L POC Hct RDW 16.6 H Plt Count Lymph # (Auto) RBC Morphology Abnorm A Anisocytosis 1+ A Ovalocytes Few A PT INR Chloride 109 H Glucose 152 H POC Glucose Calcium 7.7 L POC WB Ioniz Calcium Magnesium 1.2 L Total Bilirubin Total Protein 4.5 L Albumin 2.3 L 06/28/17 06/27/17 06/27/17 00:25 19:59 16:21 WBC RBC Hgb 8.5 L 8.8 L 10.1 L Hct POC Hct RDW Plt Count Lymph # (Auto) RBC Morphology Anisocytosis Ovalocytes PT INR Chloride Glucose POC Glucose Calcium POC WB Ioniz Calcium Magnesium Total Bilirubin Total Protein Albumin 06/27/17 06/27/17 06/27/17 13:22 09:34 07:44 WBC RBC 3.02 L Hgb 10.6 L 8.7 L Hct 26.6 L POC Hct 27.0 L RDW 16.5 H Plt Count Lymph # (Auto) 1.1 L RBC Morphology Anisocytosis Ovalocytes PT INR Chloride Glucose POC Glucose 249 H Calcium POC WB Ioniz Calcium 1.14 L Magnesium Total Bilirubin Total Protein Albumin 06/27/17 06/27/17 07:44 07:44 WBC RBC Hgb Hct POC Hct 25.0 L RDW Plt Count Lymph # (Auto) RBC Morphology Anisocytosis Ovalocytes PT 35.8 H INR 3.4 H Chloride Glucose POC Glucose 266 H Calcium POC WB Ioniz Calcium Magnesium Total Bilirubin Total Protein Albumin Meds: Medications Acetaminophen (Tylenol) 650 mg PO Q4-6HP PRN PRN Reason: PAIN/FEVER > 101 Last Admin: 06/29/17 01:29 Dose: 650 mg Diagnostic Test (Pha) (Accu-Chek) 1 each FS ACHS [facility] Last Admin: 06/29/17 08:03 Dose: 1 each Magnesium Sulfate (Magnesium Sulfate) 2 gm in 50 mls @ 50 mls/hr IV UD PRN PRN Reason: MG = or < 1.7 Last Infusion: 06/28/17 07:00 Dose: Infused Vasopressin 20 unit/ Dextrose 100 mls @ 12 mls/hr IV Q8HP PRN; Protocol; 0.04 UNIT/MIN PRN Reason: Hypotension Sodium Chloride (Sodium Chloride 0.9%) 500 mls @ 20 mls/hr IV .Q24H [facility] Last Admin: 06/28/17 16:49 Dose: Not Given Norepinephrine Bitartrate 16 (mg/ Sodium Chloride) 250 mls @ 9.37 mls/hr IV Q24HP PRN; Protocol; 10 MCG/MIN PRN Reason: Hypotension Insulin Human Lispro (Humalog) 0 unit SQ ACHS [facility] PRN Reason: Protocol Last Admin: 06/29/17 08:34 Dose: 1 unit Ondansetron HCl (Zofran) 4 mg IV Q4-6HP PRN PRN Reason: Nausea And Vomiting Potassium Chloride (Klor-Con) 40 meq PO DAILYP PRN PRN Reason: K+ < 3.5 Senna/Docusate Sodium (Senna Plus Tablet) 1 tab PO HS [facility] Last Admin: 06/28/17 21:08 Dose: Not Given Sodium Chloride (Saline Flush) 10 ml IV Q8 [facility] Last Admin: 06/29/17 05:41 Dose: 10 ml Trazodone HCl (Desyrel) 50 mg PO HSP PRN PRN Reason: Insomnia Medical - PN: A/P - Time Spent With Patient Total time spent is greater than 50% in coordination of care (as documented) at patient's floor/unit and/or counseling patient: 15 - 24 minutes (1) Postoperative hemorrhagic shock Status: Acute Assessment and plan: * Hemorrhagic shock secondary to biopsy site bleeding Post colonoscopy- status post 5 L crystalloid/4 units blood transfusion . Off pressors. Stable hemodynamics. Transfer to medical floor * acute blood loss anemia-status post 4 unit blood transfusion. emoglobin stable at 9 * lower GI bleed-status post repeat colonoscopy and cauterization of bleeding vessel by GI. resolved * Hypoxic respiratory insufficiencysecondary to pulmonary congestion from volume overload-clinically resolved with diuresis. * atrial fibrillation-continue metoprolol IV as needed for rate control * Anticoagulation for CVA prophylaxis-rivaroxaban held in light of active GI bleed * DM type II continue sliding scale insulin Plan * transfer to medical floor * Possible discharge in 24 hours * DC serial hemoglobin checks * advance diet as tolerated * Discharge in 24 hour if no further bleed Current Visit: Yes Medical - PN: Qual - Stroke Symptom Onset Unknown: No - VTE Deep Vein Thrombosis/Pulmonary Embolism Present on Admission: No
[2017-06-29] MEDS ORDERED: POTASSIUM CHLORIDE 20 MEQ PACKET PO PRN (10:36)
[2017-06-29] MEDS ORDERED: ACETAMINOPHEN 325 MG TABLET PO PRN (10:36)
[2017-06-29] MEDS ORDERED: traZODone HCL 50 MG TABLET PO PRN (10:36)
[2017-06-29] MEDS ORDERED: MAGNESIUM SULFATE 2 GM/50 ML BAG IV PRN (10:36)
[2017-06-29] MEDS ORDERED: ONDANSETRON 4 MG/2 ML VIAL IV PRN (10:36)
[2017-06-29] MEDS ORDERED: PNEUMOCOCCAL 23-VAL P-SAC VAC 0.5 ML VIAL IM ONE (12:30)
[2017-06-29] MEDS: GABAPENTIN 300 MG CAPSULE PO SCH ×2 (14:56→21:13)
[2017-06-29] MEDS: metFORMIN 500 MG TABLET PO SCH (17:04)
[2017-06-29] MEDS ORDERED: SENNOSIDES/DOCUSATE SODIUM 1 TAB TABLET PO SCH (21:00)
[2017-06-29] MEDS ORDERED: ATORVASTATIN 20 MG TABLET PO SCH (21:00)
[2017-06-29] MEDS: METOPROLOL TARTRATE 25 MG TABLET PO SCH (21:13)
[2017-06-30] MEDS: 0.9 % SODIUM CHLORIDE 10 ML SYRINGE IV SCH (05:47)
[2017-06-30 06:07] LABS: Mean Corpuscular HGB Conc 33.2 g/dL (31.0-36.0); Mean Corpuscular Hemoglobin 29.9 pg (26.0-34.0); Platelet Count 149 K/mcL (140-440); RBC 2.96 M/mcL (4.50-5.90); Red Cell Distribution Width 15.8 % (11.5-14.5)
[2017-06-30 06:31] LABS: ALT/SGPT 11 U/l (0-40); Albumin 2.7 gm/dL (3.2-5.2); Albumin/Globulin Ratio 1.1 (1.0-2.3); Alkaline Phosphatase 66 U/L (39-117); Bilirubin,Direct < 0.2 mg/dL (0.0-0.3); Blood Urea Nitrogen 13 mg/dl (8-23); Gamma Glutamyl Transpeptidase 51 U/L (8-61); Magnesium 1.4 mg/dL (1.6-2.5); Uric Acid 5.5 mg/dL (2.5-8.0)
[2017-06-30 07:00] LABS: Anisocytosis 1+ (NONE SEEN); Band Neutrophils % 2 % (0-10); Eosinophils % (Manual) 3 % (0-7); Lymphocytes % 18 % (15-49); Monocytes % (Manual) 8 % (1-12); Ovalocytes FEW (NONE SEEN); Platelet Estimate NORMAL (NORMAL); RBC Morphology ABNORM (NORMAL); Segmented Neutrophils % 69 % (38-78)
--- NOTE | 2017-06-30 07:12 | Discharge Summary ---
Medical - DS: Prov Patient information: Note initiated : 06/30/17 at 7:09 am Service Date, if different from initiated Date: [] Patient: Oz Cardozo 71 y/o M admitted on 06/27/17 for Massive GI Bleed and Hemorrhagic Shock. Chief Complaint: [] Date of admission: 06/27/17 12:05 Discharge date: 06/30/17 Primary care physician: Freddie Randolph Medical - DS: Meds - Discharge Medications Active and Home Medications: Home Medications allopurinol 300 mg tablet 300 mg PO QDAY 05/26/16 [History Confirmed 06/27/17 Last Taken 06/26/17 23:00] gabapentin 300 mg capsule 600 mg PO TID 05/26/16 [History Confirmed 06/27/17 Last Taken 06/26/17 23:00] insulin glargine 50 unit SUB-Q HS 05/26/16 [History Confirmed 06/29/17 Last Taken 06/26/17 23:00] lisinopril 40 mg tablet 40 mg PO QDAY 05/26/16 [History Confirmed 06/27/17 Last Taken 06/26/17 23:00] metformin 1,000 mg tablet 1,000 mg PO BID 05/26/16 [History Confirmed 06/27/17 Last Taken 06/26/17 23:00] metoprolol tartrate 25 mg tablet 25 mg PO BID 05/26/16 [History Confirmed Last Taken 06/26/17 23:00] mometasone 1 puff INHALATION BID 05/26/16 [History Confirmed 06/27/17 Last Taken 06/26/17 23:00] rivaroxaban 20 mg tablet 20 mg PO QDAY 05/26/16 [History Confirmed 06/27/17 Last Taken 06/26/17 23:00] rosuvastatin 20 mg tablet 20 mg PO QDAY 05/26/16 [History Confirmed 06/27/17 Last Taken 06/26/17 23:00] spironolactone 25 mg tablet 25 mg PO QDAY 05/26/16 [History Confirmed 06/27/17 Last Taken 06/26/17 23:00] ascorbic acid (vitamin C) 500 mg tablet 500 mg PO BID 08/01/16 [History Confirmed 06/27/17 Last Taken 06/26/17 23:00] cholecalciferol (vitamin D3) 1,000 unit tablet 1,000 unit PO QDAY tab 08/01/16 [History Confirmed 06/27/17 Last Taken 06/26/17 23:00] psyllium seed (sugar) oral powder 2 tbsp PO QDAY each 08/01/16 [History Confirmed 06/27/17 Last Taken 06/26/17 23:00] omeprazole 40 mg capsule,delayed release 40 mg PO QDAY #30 cap 10/24/16 [Rx Confirmed 06/27/17 Last Taken 06/26/17 23:00] dapagliflozin 10 mg tablet 10 mg PO QAM #90 tab 03/29/17 [Rx Confirmed 06/27/17 Last Taken 06/26/17 23:00] tramadol 50 mg tablet 100 mg PO Q6H PRN #120 tab 05/01/17 [Rx Confirmed Last Taken 06/25/17 23:00] Loratadine [Loradamed] 10 mg PO DAILY 06/27/17 [History Confirmed 06/27/17 Last Taken 06/26/17 23:00] Medical - DS: Hosp Hospital course: DISCHARGE DIAGNOSIS * Hemorrhagic shock secondary to Colonoscopy/biopsy site bleeding - status post 5 L crystalloid/4 units blood transfusion . Off pressors. Stable hemodynamics. discharging home * acute blood loss anemia-status post 4 unit blood transfusion. Hemoglobin stable at 9 * lower GI bleed-status post repeat colonoscopy and cauterization of bleeding vessel by GI. resolved * Hypoxic respiratory insufficiency-resolved.secondary to pulmonary congestion from volume overload. * atrial fibrillation-continue metoprolol IV as needed for rate control * Anticoagulation for CVA prophylaxis-rivaroxaban to start in 5 days * DM type IImanaged on sliding scale insulin BRIEF HOSPITAL COURSE Mr. Cardozo is a 71 year old M 06/27-atient admitted with hemorrhagic shock secondary to postprocedure colonic bleed. patient has been on hisrivaroxaban which has been discontinued On admit. status post 2 units blood transfusion. Map at goal on vasopressors after 4 L crystalloid bolus. patient critically ill. Emergent endoscopy evaluation sought with Dr. Romero GI.On every 4 hemoglobin checks. 3 bloody bowels since admission Patient underwent colonoscopy in the evening with identification of active bleed or and subsequent cauterization/hemostasis achieved by GI. Hemoglobin dropped from 10-8.8 . on vasopressors to keep map at goal. Status post additional 2 L crystalloid bolus. Patient on 3 L oxygen. Remains critically ill. 06/28- hemoglobin dropped to 7.8. Additional 2 units blood transfusion ordered. 2 additional bloody bowels since last night. Continue every 4 hemoglobin checks. discussed with patient that if If persistent bleeding patient will be [facility] embol[facility]. patient remains critically ill in light of hemorrhagic shock requiring pressors 06/29- patient doing well. One bloody bowel last night. Hemoglobin up to 9. Status post 4 unit transfusion. No lightheadedness dizziness chest pain. Off oxygen. Advancing diet from clears to full liquids to soft diet today. anticoagulation on hold. Await callback from primary care physician about discussions of the initiation of anticoagulation. no concerns per staffl no fever chillsl transfer to medical floor 06/30-patient doing well. No overnight events. No further bloody bowels. Advancing diet. Stable hemodynamics. Discharging home with detailed instructions and medications as below Discharge diagnosis: . - Time Spent with Patient Total time spent providing and/or coordinating discharge services: Greater than 30 minutes Medical - DS: Exam - Constitutional Vitals: Vital Signs Temp Pulse Resp BP BP Pulse Ox 06/30/17 06:21 98.3 F 20 107/57 95 06/30/17 04:00 98.0 F 67 16 116/60 95 06/29/17 23:45 97.8 F 70 16 123/67 96 06/29/17 20:00 98.8 F 103 H 14 131/64 97 06/29/17 12:00 98.6 F 90 20 134/58 98 06/29/17 10:00 16 119/66 98 06/29/17 09:15 14 93/71 98 06/29/17 08:00 98.0 F 12 124/69 99 Intake and Output 06/29/17 06/30/17 06/30/17 21:59 05:59 13:59 Intake Total 300 / 300 Output Total 300 / 300 Balance -300 / -300 300 / 300 Intake: Oral 300 / 300 Output: Void Amount 300 / 300 Other: # Voids 1 1 # Bowel Movements 1 Weight 224 lb Medical - DS: Data Labs on day of discharge: Labs from last 24 hours 06/30/17 06/30/17 06/29/17 05:22 05:22 08:04 WBC 7.6 RBC 2.96 L Hgb 8.9 L 9.0 L Hct 26.7 L MCV 90.0 MCH 29.9 MCHC 33.2 RDW 15.8 H Plt Count 149 MPV 8.1 Total Counted 100 Seg Neutrophils % 69 Band Neutrophils % 2 Lymphocytes % 18 Monocytes % (Manual) 8 Eosinophils % (Manual) 3 Platelet Estimate Normal RBC Morphology Abnorm A Anisocytosis 1+ A Ovalocytes Few A Sodium 139 Potassium 4.1 Chloride 104 Carbon Dioxide 23 Anion Gap 12.0 BUN 13 Creatinine 0.8 GFR Calculation 89 Glucose 152 H Uric Acid 5.5 Calcium 8.8 Phosphorus 4.1 Magnesium 1.4 L Total Bilirubin 0.5 Direct Bilirubin < 0.2 GGT 51 AST 15 ALT 11 Alkaline Phosphatase 66 Lactate Dehydrogenase 142 Total Protein 5.2 L Albumin 2.7 L Globulin 2.5 Albumin/Globulin Ratio 1.1 Triglycerides 134 06/29/17 04:00 WBC RBC Hgb Hct MCV MCH MCHC RDW Plt Count MPV Total Counted 100 Seg Neutrophils % 72 Band Neutrophils % 1 Lymphocytes % 22 Monocytes % (Manual) 5 Eosinophils % (Manual) Platelet Estimate Normal RBC Morphology Normal Anisocytosis Occ A Ovalocytes Sodium Potassium Chloride Carbon Dioxide Anion Gap BUN Creatinine GFR Calculation Glucose Uric Acid Calcium Phosphorus Magnesium Total Bilirubin Direct Bilirubin GGT AST ALT Alkaline Phosphatase Lactate Dehydrogenase Total Protein Albumin Globulin Albumin/Globulin Ratio Triglycerides Medical - DS: A/P - Patient/Caregiver Discharge Instructions Activity: increase activity as tolerated Diet: Regular Diet Additional Instructions: Follow-up PCP in 5 days restart anticoagulation in 5 days Continue aggressive bowel regimen to prevent constipation All meals on chair sitting upright at 90 degrees to prevent aspiration Return to ER if worsening fever chills shortness of breath, diarrhea, bleeding Continue diet and activity as advised Discussed importance of medication adherence Please review medication list with patient prior to discharge Please schedule follow-up with PCP/Providers prior to discharge and provide printouts Portions of this chart may have been created with [employer] voice recognition software. Occasional wrong-word or ?sound-like? substitutions may have occurred due to the inherent limitations of voice recognition software. Please read the chart carefully and recognize, using context, where the substitutions have occurred. CC- PCP - Problem Maintenance (1) Postoperative hemorrhagic shock Status: Acute - Follow up Plan Follow up with: Freddie Randolph DO [Primary Care Provider] - Disposition: Home, Self-Care Prognosis: Fair Rehab Potential: Good I certify that the patient requires SNF services: No Overall status at discharge: patient is back to baseline Medical - DS: Qual - VTE Deep Vein Thrombosis/Pulmonary Embolism Present on Admission: No
[2017-06-30] MEDS ORDERED: OMEPRAZOLE 20 MG CAPSULE PO SCH (07:30)
[2017-06-30] MEDS: INSULIN LISPRO 1 UNIT/0.01 ML UNIT SQ SCH (07:49)
[2017-06-30] MEDS ORDERED: ALLOPURINOL 300 MG TABLET PO SCH (09:00)
[2017-06-30] MEDS ORDERED: Dapagliflozin Propanediol [Farxiga] 10 mg Tab PO SCH (09:00)
[2017-06-30] MEDS ORDERED: LORATADINE 10 MG TABLET PO SCH (09:00)
[2017-06-30] MEDS ORDERED: INSULIN GLARGINE, HUMAN 1 UNIT/0.01 ML SQ SCH (09:00)
[2017-06-30] MEDS: metFORMIN 500 MG TABLET PO SCH (09:09)
[2017-06-30] MEDS: GABAPENTIN 300 MG CAPSULE PO SCH (09:10)
[2017-06-30] MEDS: METOPROLOL TARTRATE 25 MG TABLET PO SCH (09:10)
== END 2017-06-30 11:30 | disposition home or self-care (01) | DRG 920 ==
LOC: ED 07:11 → ICU 12:05 → MEDSUR 06-29 13:27
PROVIDERS: ADMIT Internal Medicine; ATTEND Internal Medicine

== ENCOUNTER 2020-09-12 03:17 | Inpatient (IN) ==
[2020-09-12 04:40] LABS: Basophils # (Auto) 0.06 K/mcL (0.00-0.20); Basophils % (Auto) 0.8 % (0.0-2.0); Eosinophils # (Auto) 0.15 K/mcL (0.00-0.70); Eosinophils % (Auto) 1.9 % (0.0-7.0); Hematocrit 33.3 % (41.0-55.0); Hemoglobin 10.6 g/dL (13.5-16.5); Lymphocytes # (Auto) 1.27 K/mcL (1.50-4.80); Lymphocytes % (Auto) 15.9 % (15.0-49.0); Mean Cell Volume 91.2 fL (80.0-100.0); Mean Corpuscular HGB Conc 31.8 g/dL (31.0-36.0); Mean Platelet Volume 10.4 fL (7.4-10.4); Monocytes # (Auto) 0.93 K/mcL (0.10-0.90); Monocytes % (Auto) 11.6 % (1.0-12.0); Neutrophils % (Auto) 69.8 % (38.0-78.0); Platelet Count 215 K/mcL (140-440); RBC 3.65 M/mcL (4.50-5.90); Red Cell Distribution Width 15.6 % (11.5-14.5)
[2020-09-12 05:04] LABS: ALT/SGPT 9 U/L (<40); AST/SGOT 19 U/L (<40); Albumin 3.8 gm/dL (3.2-5.2); Alkaline Phosphatase 154 U/L (39-117); Bilirubin,Total 0.8 mg/dL (0.1-1.0); Blood Urea Nitrogen 55 mg/dL (8-23); Calcium 9.4 mg/dL (8.6-10.4); Carbon Dioxide 19 mmol/L (22-30); Chloride 103 mmol/L (96-108); Globulin 3.7 gm/dL (2.2-3.7); Glomerular Filtration Rate 25; Glucose 80 mg/dL (70-105)
[2020-09-12 06:28] LABS: Appearance,Urine HAZY (Clear); Bilirubin,Urine Negative (Negative); Color,Urine YELLOW; Culture Indicated,Urine No; Glucose,Urine (UA) Negative (Negative); Ketones,Urine Negative (Negative); Leukocyte Esterase,Urine Negative /ug (Negative); Nitrate,Urine Negative (Negative); Protein,Urine 30 mg/dL (Negative); Specific Gravity,Urine 1.008 (1.000-1.035); Urine Blood Negative (Negative); Urine Hyaline Cast 33 /lph (0-2); Urine RBC < 1 /hpf (0-3); Urine Squamous Epithelial Cell 1 /hpf (0-4); Urine WBC 3 /hpf (0-4); Urobilinogen,Urine Negative
[2020-09-12] MEDS ORDERED: FUROSEMIDE 20 MG/2 ML VIAL IV ONE (06:32)
--- NOTE | 2020-09-12 06:48 | Emergency Department Note ---
Weakness HPI General Chief complaint: Weakness Stated complaint: leg weakness Time Seen by Provider: 09/12/20 03:21 Source: patient and family Mode of arrival: wheelchair Limitations: other (Patient's dementia) History of Present Illness HPI Narrative: Narrative: 75-year-old male presents to the emergency department complaining of bilateral leg weakness x2 days. He states that is now at the point where he can only take a step and then stops his said it was almost impossible to get him to walk. He denies new onset pain. Patient has been using oxygen at home for the past 3 days. Unable to to obtain detailed history of present illness because of the patient's condition. Onset (ago): day(s) Duration: constant Severity: severe Improves with: none Worsens with: exertion Related Data Home Medications Medication Instructions Recorded Confirmed allopurinol 300 mg tablet 300 mg PO QDAY 05/26/16 09/12/20 gabapentin 300 mg capsule 600 mg PO TID 05/26/16 09/12/20 lisinopril 40 mg tablet 40 mg PO QDAY 05/26/16 09/12/20 metformin 1,000 mg tablet 1,000 mg PO BID 05/26/16 09/12/20 metoprolol tartrate 25 mg tablet 25 mg PO BID 05/26/16 09/12/20 rivaroxaban 20 mg tablet 20 mg PO QDAY 05/26/16 09/12/20 rosuvastatin 20 mg tablet 20 mg PO QDAY 05/26/16 09/12/20 spironolactone 25 mg tablet 25 mg PO QDAY 05/26/16 09/12/20 ascorbic acid (vitamin C) 500 mg 500 mg PO BID 08/01/16 09/12/20 tablet cholecalciferol (vitamin D3) 25 1,000 unit PO QDAY tab 08/01/16 09/12/20 mcg (1,000 unit) tablet psyllium seed (sugar) oral powder 2 tbsp PO QDAY each 08/01/16 09/12/20 loratadine 10 mg PO DAILY 06/27/17 09/12/20 alogliptin 25 mg tablet 25 mg PO QDAY 02/04/19 09/12/20 insulin glargine 40 unit SUB-Q HS 09/19/19 09/12/20 Previous Rx's Medication Instructions Recorded omeprazole 40 mg capsule,delayed 40 mg PO QDAY #30 cap 10/24/16 release Bipap machine and supplies #1 ea 11/16/18 metoclopramide HCl 5 mg tablet 5 mg PO BID PRN #60 tab 08/05/19 glipizide 10 mg tablet 10 mg PO QDAY #90 tab 10/30/19 tramadol 50 mg tablet 100 mg PO Q6H PRN #120 tab 06/18/20 memantine 10 mg tablet 10 mg PO QDAY #90 tab 07/01/20 blood sugar diagnostic #100 each 07/21/20 dulaglutide 4.5 mg/0.5 mL 4.5 mg SUB-Q QWEEK #2 ml 08/11/20 subcutaneous pen injector torsemide 10 mg tablet 10 mg PO BID #160 tab 08/13/20 Oxygen 2LPM at nighttime #1 ea 08/31/20 Allergies Allergy/AdvReac Type Severity Reaction Status Date / Time adhesive tape Allergy Unknown Tears skin Verified 09/12/20 03:27 off Review of Systems ROS ROS Narrative: Narrative: Limitations: ROS unobtainable due to patients medical condition Constitutional: Denies fever Cardiovascular: Denies chest pain Genitourinary: Reports incontinence Neurological: Reports weakness Psychiatric: Denies anxiety and depression PFSH Narrative Patient History Narrative: Narrative: Medical/Surgical/Family History All Active Problems (Updated 09/13/20 @ 09:06 by Yosi Live MD) Bilateral leg weakness (Acute) Chronic diastolic (congestive) heart failure (Acute) Fatigue (Acute) Epistaxis (Acute) Medicare annual wellness visit, initial (Acute) Neoplasm of uncertain behavior of skin of face (Acute) Weakness (Acute) JASON treated with BiPAP (Chronic) Imbalance (Acute) Asbestos-induced pleural plaque (Chronic) Diabetic gastroparesis (Chronic) JASON (obstructive sleep apnea) (Chronic) Aortic valvular stenoses (Chronic) Abscess (Acute) Dyspnea on exertion (Chronic) Cellulitis (Acute) Pulmonary arterial hypertension (Chronic) Gastroesophageal reflux disease (Chronic) Peripheral neuropathy (Chronic) Chronic anticoagulation (Chronic) GI bleed (Acute) Postoperative hemorrhagic shock (Acute) Acute GI bleeding (Acute) Frequent epistaxis (Acute) Claudication (Chronic) Overweight (Chronic) Diverticulosis (Chronic) Colon polyps (Chronic) History of alcoholism (Chronic) Osteoarthritis (Chronic) Asthma (Chronic) Sciatica (Chronic) Osteoarthritis of feet, bilateral (Chronic) Insomnia (Chronic) Dyslipidemia (Chronic) Diabetic neuropathy (Chronic) Microalbuminuria (Chronic) Coronary artery disease (Chronic) Acute bacterial rhinosinusitis (Acute) Balance problem (Chronic) Dementia (Chronic) History of tobacco use (Chronic) Hyperlipidemia (Chronic) Hypertension, essential (Chronic) Atrial fibrillation (Chronic) Heart attack (Chronic ~2011) Gout (Chronic) DMII (diabetes mellitus, type 2) (Chronic) Asbestosis (Chronic) Medical History Aortic valvular stenoses 1.04 valve area cardiac cath August 2018 [place] Asbestos-induced pleural plaque Asbestosis Asthma Atrial fibrillation Colon polyps Coronary artery disease Diabetic neuropathy Diverticulosis DMII (diabetes mellitus, type 2) Dyslipidemia Dyspnea on exertion Epistaxis Gastroesophageal reflux disease Gout Heart attack (~2011) History of alcoholism History of tobacco use Hyperlipidemia Hypertension, essential Insomnia Medicare annual wellness visit, initial Microalbuminuria Neoplasm of uncertain behavior of skin of face JASON (obstructive sleep apnea) JASON treated with BiPAP JASON treated with BiPAP Osteoarthritis Osteoarthritis of feet, bilateral Overweight Pulmonary arterial hypertension Sciatica Surgical History H/O colonoscopy 06/26/17 & 01/02/19 H/O rotator cuff surgery (~2010) Right shoulder History of esophagogastroduodenoscopy (EGD) (12/26/16) History of right and left heart catheterization (09/04/18) Stented coronary artery (~2011) Family History Mother Diabetes Hypertension, essential Stroke Father Asthma Emphysema, unspecified Social History Smoking Status: Former smoker Alcohol Intake Frequency: holiday/special occasion only Substance Use: does not use Exam Narrative Narrative: Narrative: General Limitations: other (Patient's dementia) General appearance: Present in no apparent distress and obese Head Head: Present atraumatic Eye Eye: Present EOMI Neck Neck: Present normal inspection Chest Chest: Present normal inspection Respiratory Respiratory: Present normal lung sounds bilaterally; Absent wheezes Cardiovascular Cardiovascular: Present regular rate and irregular rhythm Adbominal Abdominal: Present soft Extremities Extremities: Present pedal edema (4+ pitting edema lower extremities) Neurological Neurological: Present alert Skin Skin: Present warm (WNL) and dry Course Vital Signs Vital signs: Vital Signs Temperature 97.9 F 09/12/20 03:21 Pulse Rate 90 09/12/20 03:21 Respiratory Rate 20 09/12/20 03:21 Blood Pressure 124/90 09/12/20 03:21 Pulse Oximetry (%) 91 09/12/20 03:21 Temperature 98.3 F 09/13/20 08:01 Pulse Rate 73 09/13/20 08:01 Respiratory Rate 17 09/13/20 08:01 Blood Pressure 115/70 09/13/20 08:01 Pulse Oximetry (%) 91 09/13/20 08:01 MDM MDM Narrative Medical decision making narrative: Narrative: Elderly male presents to the emergency department because of bilateral leg weakness of 2 days duration generally difficulty moving around. Patient with significant edema in lower extremities. Differential diagnosis includes neurologic etiology, generalized weakness of multiple possibilities, congestive heart failure, renal insufficiency, infection I obtained a CBC which showed a normal white count of 8.0 hemoglobin was mildly low at 10.6 but not incompatible with this patient electrolytes did reveal elevated BUN of 55 with elevated creatinine of 2.4. Glucose was 80 which is normal but lower than the patient's typical 1 20-300. Troponin was 0.05 which may be due to the kidney disease has opposed to the heart. BNP was elevated at 4459. Due to the complexity of the patient's conditionIn his bilateral leg weakness making him unable to get about I spoke with the hospitalist who agreed to admit the patient for further evaluation. Lab Data Result diagrams: 09/13/20 05:00 09/13/20 05:00 Labs: Lab Results 09/12/20 09/12/20 09/12/20 Range/Units 03:47 03:47 03:47 WBC 8.0 (4.5-11.0) K/mcL RBC 3.65 L (4.50-5.90) M/mcL Hgb 10.6 L (13.5-16.5) g/dL Hct 33.3 L (41.0-55.0) % MCV 91.2 (80.0-100.0) fL MCH 29.0 (26.0-34.0) pg MCHC 31.8 (31.0-36.0) g/dL RDW 15.6 H (11.5-14.5) % Plt Count 215 (140-440) K/mcL MPV 10.4 (7.4-10.4) fL Neut % (Auto) 69.8 (38.0-78.0) % Lymph % (Auto) 15.9 (15.0-49.0) % [place] % (Auto) 11.6 (1.0-12.0) % Eos % (Auto) 1.9 (0.0-7.0) % Baso % (Auto) 0.8 (0.0-2.0) % Lymph # (Auto) 1.27 L (1.50-4.80) K/mcL [place] # (Auto) 0.93 H (0.10-0.90) K/mcL Eos # (Auto) 0.15 (0.00-0.70) K/mcL Baso # (Auto) 0.06 (0.00-0.20) K/mcL Absolute Neutrophils 5.59 (1.80-8.00) K/mcL PT (11.9-14.5) sec INR (0.9-1.1) Sodium 135 (133-145) mmol/L Potassium 4.8 (3.3-5.1) mmol/L Chloride 103 (96-108) mmol/L Carbon Dioxide 19 L (22-30) mmol/L Anion Gap 13.0 (8.0-16.0) BUN 55 H (8-23) mg/dL Creatinine 2.4 H (0.7-1.2) mg/dL GFR Calculation 25 Glucose 80 (70-105) mg/dL Calcium 9.4 (8.6-10.4) mg/dL Total Bilirubin 0.8 (0.1-1.0) mg/dL AST 19 (<40) U/L ALT 9 (<40) U/L Alkaline Phosphatase 154 H (39-117) U/L Troponin T 0.05 H* (<0.03) ng/mL NT-Pro-B Natriuret Pep 4459.0 H (<450.0) pg/mL Total Protein 7.5 (5.9-8.4) gm/dL Albumin 3.8 (3.2-5.2) gm/dL Globulin 3.7 (2.2-3.7) gm/dL Albumin/Globulin Ratio 1.0 (1.0-2.3) TSH (0.27-5.01) uIU/mL Free T4 (0.93-1.70) ng/dL Urine Color Urine Appearance (Clear) Urine pH (5.0-9.0) Ur Specific [place] (1.000-1.035) Urine Protein (Negative) mg/dL Urine Glucose (UA) (Negative) mg/dL Urine Ketones (Negative) mg/dL Urine Occult Blood (Negative) mg/dL Urine Nitrate (Negative) Urine Bilirubin (Negative) mg/dL Urine Urobilinogen mg/dL Ur Leukocyte Esterase (Negative) /ug Urine RBC (0-3) /hpf Urine WBC (0-4) /hpf Ur Squamous Epith Cells (0-4) /hpf Urine Bacteria (0) /hpf Hyaline Casts (0-2) /lph Ur Culture Indicated? Ur Random Creatinine (39.0-259.0) mg/dL Ur Random Sodium mmol/L Urine Urea Nitrogen mg/dL 09/12/20 09/12/20 09/12/20 Range/Units 03:47 03:47 05:53 WBC (4.5-11.0) K/mcL RBC (4.50-5.90) M/mcL Hgb (13.5-16.5) g/dL Hct (41.0-55.0) % MCV (80.0-100.0) fL MCH (26.0-34.0) pg MCHC (31.0-36.0) g/dL RDW (11.5-14.5) % Plt Count (140-440) K/mcL MPV (7.4-10.4) fL Neut % (Auto) (38.0-78.0) % Lymph % (Auto) (15.0-49.0) % Wake % (Auto) (1.0-12.0) % Eos % (Auto) (0.0-7.0) % Baso % (Auto) (0.0-2.0) % Lymph # (Auto) (1.50-4.80) K/mcL [place] # (Auto) (0.10-0.90) K/mcL Eos # (Auto) (0.00-0.70) K/mcL Baso # (Auto) (0.00-0.20) K/mcL Absolute Neutrophils (1.80-8.00) K/mcL PT 22.5 H (11.9-14.5) sec INR 1.9 H (0.9-1.1) Sodium (133-145) mmol/L Potassium (3.3-5.1) mmol/L Chloride (96-108) mmol/L Carbon Dioxide (22-30) mmol/L Anion Gap (8.0-16.0) BUN (8-23) mg/dL Creatinine (0.7-1.2) mg/dL GFR Calculation Glucose (70-105) mg/dL Calcium (8.6-10.4) mg/dL Total Bilirubin (0.1-1.0) mg/dL AST (<40) U/L ALT (<40) U/L Alkaline Phosphatase (39-117) U/L Troponin T (<0.03) ng/mL NT-Pro-B Natriuret Pep (<450.0) pg/mL Total Protein (5.9-8.4) gm/dL Albumin (3.2-5.2) gm/dL Globulin (2.2-3.7) gm/dL Albumin/Globulin Ratio (1.0-2.3) TSH 10.45 H (0.27-5.01) uIU/mL Free T4 0.95 (0.93-1.70) ng/dL Urine Color Yellow Urine Appearance Hazy A (Clear) Urine pH 5.0 (5.0-9.0) Ur Specific [place] 1.008 (1.000-1.035) Urine Protein 30 A (Negative) mg/dL Urine Glucose (UA) Negative (Negative) mg/dL Urine Ketones Negative (Negative) mg/dL Urine Occult Blood Negative (Negative) mg/dL Urine Nitrate Negative (Negative) Urine Bilirubin Negative (Negative) mg/dL Urine Urobilinogen Negative mg/dL Ur Leukocyte Esterase Negative (Negative) /ug Urine RBC < 1 (0-3) /hpf Urine WBC 3 (0-4) /hpf Ur Squamous Epith Cells 1 (0-4) /hpf Urine Bacteria None (0) /hpf Hyaline Casts 33 H (0-2) /lph Ur Culture Indicated? No Ur Random Creatinine (39.0-259.0) mg/dL Ur Random Sodium mmol/L Urine Urea Nitrogen mg/dL 09/12/20 09/12/20 09/12/20 Range/Units 05:53 05:53 05:53 WBC (4.5-11.0) K/mcL RBC (4.50-5.90) M/mcL Hgb (13.5-16.5) g/dL Hct (41.0-55.0) % MCV (80.0-100.0) fL MCH (26.0-34.0) pg MCHC (31.0-36.0) g/dL RDW (11.5-14.5) % Plt Count (140-440) K/mcL MPV (7.4-10.4) fL Neut % (Auto) (38.0-78.0) % Lymph % (Auto) (15.0-49.0) % Wake % (Auto) (1.0-12.0) % Eos % (Auto) (0.0-7.0) % Baso % (Auto) (0.0-2.0) % Lymph # (Auto) (1.50-4.80) K/mcL [place] # (Auto) (0.10-0.90) K/mcL Eos # (Auto) (0.00-0.70) K/mcL Baso # (Auto) (0.00-0.20) K/mcL Absolute Neutrophils (1.80-8.00) K/mcL PT (11.9-14.5) sec INR (0.9-1.1) Sodium (133-145) mmol/L Potassium (3.3-5.1) mmol/L Chloride (96-108) mmol/L Carbon Dioxide (22-30) mmol/L Anion Gap (8.0-16.0) BUN (8-23) mg/dL Creatinine (0.7-1.2) mg/dL GFR Calculation Glucose (70-105) mg/dL Calcium (8.6-10.4) mg/dL Total Bilirubin (0.1-1.0) mg/dL AST (<40) U/L ALT (<40) U/L Alkaline Phosphatase (39-117) U/L Troponin T (<0.03) ng/mL NT-Pro-B Natriuret Pep (<450.0) pg/mL Total Protein (5.9-8.4) gm/dL Albumin (3.2-5.2) gm/dL Globulin (2.2-3.7) gm/dL Albumin/Globulin Ratio (1.0-2.3) TSH (0.27-5.01) uIU/mL Free T4 (0.93-1.70) ng/dL Urine Color Urine Appearance (Clear) Urine pH (5.0-9.0) Ur Specific [place] (1.000-1.035) Urine Protein (Negative) mg/dL Urine Glucose (UA) (Negative) mg/dL Urine Ketones (Negative) mg/dL Urine Occult Blood (Negative) mg/dL Urine Nitrate (Negative) Urine Bilirubin (Negative) mg/dL Urine Urobilinogen mg/dL Ur Leukocyte Esterase (Negative) /ug Urine RBC (0-3) /hpf Urine WBC (0-4) /hpf Ur Squamous Epith Cells (0-4) /hpf Urine Bacteria (0) /hpf Hyaline Casts (0-2) /lph Ur Culture Indicated? Ur Random Creatinine 121.4 (39.0-259.0) mg/dL Ur Random Sodium 39 mmol/L Urine Urea Nitrogen 501 mg/dL ED POC Tests ED POC Tests: GLENDY - SARS Antigen Negative EKG Data EKG #1: EKG attestation: Yes I reviewed and interpreted this EKG. Rate: normal Rhythm: A.Fib [place]/QRS: left axis deviation ST segment elevation in: None ST segment depression in: None Discharge Plan Patient/Caregiver Discharge Instructions Pt seen by [employer] TENDER/PA only: No Clinical Impression: Bilateral leg weakness Activity: other Patient Disposition: Xfer As Inpt ([facility]) Condition: Fair Discharge Date/Time: 09/12/20 09:29
--- NOTE | 2020-09-12 07:25 | XRay Report ---
INDICATION: weakness, edema, TECHNIQUE: AP portable upright chest x-ray COMPARISON: None FINDINGS: Lungs:Lungs are negative. No focal pulmonary parenchymal infiltrate or mass Heart, vascular:There is cardiomegaly, unchanged. Pulmonary vascularity is mildly prominent consistent with pulmonary congestion. No pulmonary edema. Mediastinum, lanie:No mediastinal widening. No hilar mass Pleura:There are pleural calcifications in the right hemithorax. These are unchanged Skeletal:Superior decentering of both humeral head suggests rotator cuff degeneration IMPRESSION: 1. Cardiomegaly and probable pulmonary congestion 2. No pulmonary edema. No focal parenchymal infiltrate Interpreted and Authenticated by: Freddie Quigley 09/12/20
--- NOTE | 2020-09-12 10:17 | Internal Med History&Physical ---
HPI History of Present Illness Patient information: Note initiated : 09/12/20 at 10:16 am Service Date, if different from initiated Date: [] Patient: Oz Cardozo a 75 y/o M admitted on 09/12/20 for leg weakness. Chief Complaint: [] History of present illness: Mr. Cardozo is a 75 year old M Presents to the ED generalized weakness difficulty walking. Patient has dementia and is a poor historian. Did talk to the and she says that he just seemed little bit weak over the past couple days and not really balances to she just says he is not moving around very much. She does think that his legs are little more swollen. She states his health has been in general decline over the past 6 months. In the ED he had a reaction above baseline. Is felt he was in CHF and given some Lasix. The chest x-ray read as cardiomegaly and probable pulmonary congestion but did not mention any pulmonary edema. Looking at old echo he has severely decreased right ventricular systolic function his LV is 40 to 45% he is severely dilated atria significant tricuspid regard and pulmonary hypertension. says he is been compliant with the CPAP and diuretics lately. Review of Systems: Pertinent positives as above. Denies headache/fever/chills/nause a/vomiting/chest or abdominal pain/cough/dyspnea/diarrhea. Remaining 10 point review of system reviewed negative PFSH PFSH All Active Problems Chronic diastolic (congestive) heart failure (Acute) Fatigue (Acute) Epistaxis (Acute) Medicare annual wellness visit, initial (Acute) Neoplasm of uncertain behavior of skin of face (Acute) Weakness (Acute) JASON treated with BiPAP (Chronic) Imbalance (Acute) Asbestos-induced pleural plaque (Chronic) Diabetic gastroparesis (Chronic) JASON (obstructive sleep apnea) (Chronic) Aortic valvular stenoses (Chronic) Abscess (Acute) Dyspnea on exertion (Chronic) Cellulitis (Acute) Pulmonary arterial hypertension (Chronic) Gastroesophageal reflux disease (Chronic) Peripheral neuropathy (Chronic) Chronic anticoagulation (Chronic) GI bleed (Acute) Postoperative hemorrhagic shock (Acute) Acute GI bleeding (Acute) Frequent epistaxis (Acute) Claudication (Chronic) Overweight (Chronic) Diverticulosis (Chronic) Colon polyps (Chronic) History of alcoholism (Chronic) Osteoarthritis (Chronic) Asthma (Chronic) Sciatica (Chronic) Osteoarthritis of feet, bilateral (Chronic) Insomnia (Chronic) Dyslipidemia (Chronic) Diabetic neuropathy (Chronic) Microalbuminuria (Chronic) Coronary artery disease (Chronic) Acute bacterial rhinosinusitis (Acute) Balance problem (Chronic) Dementia (Chronic) History of tobacco use (Chronic) Hyperlipidemia (Chronic) Hypertension, essential (Chronic) Atrial fibrillation (Chronic) Heart attack (Chronic ~2011) Gout (Chronic) DMII (diabetes mellitus, type 2) (Chronic) Asbestosis (Chronic) Medical History Aortic valvular stenoses 1.04 valve area cardiac cath August 2018 [place] Asbestos-induced pleural plaque Asbestosis Asthma Atrial fibrillation Colon polyps Coronary artery disease Diabetic neuropathy Diverticulosis DMII (diabetes mellitus, type 2) Dyslipidemia Dyspnea on exertion Epistaxis Gastroesophageal reflux disease Gout Heart attack (~2011) History of alcoholism History of tobacco use Hyperlipidemia Hypertension, essential Insomnia Medicare annual wellness visit, initial Microalbuminuria Neoplasm of uncertain behavior of skin of face JASON (obstructive sleep apnea) JASON treated with BiPAP JASON treated with BiPAP Osteoarthritis Osteoarthritis of feet, bilateral Overweight Pulmonary arterial hypertension Sciatica Surgical History H/O colonoscopy 06/26/17 & 01/02/19 H/O rotator cuff surgery (~2010) Right shoulder History of esophagogastroduodenoscopy (EGD) (12/26/16) History of right and left heart catheterization (09/04/18) Stented coronary artery (~2011) Family History Mother Diabetes Hypertension, essential Stroke Father Asthma Emphysema, unspecified Social History household members: spouse marital status: education level: college occupational status: employed and retired occupation: [employer] mechanic physical activity: walking frequency: 5-6 times per week alcohol intake frequency: holiday/special occasion only substance use type: does not use seatbelt use: always MEDS/ALLERGIES Home Medications and Allergies Home Medications Medication Instructions Recorded Confirmed Type allopurinol 300 mg tablet 300 mg PO QDAY 05/26/16 09/12/20 History gabapentin 300 mg capsule 600 mg PO TID 05/26/16 09/12/20 History lisinopril 40 mg tablet 40 mg PO QDAY 05/26/16 09/12/20 History metformin 1,000 mg tablet 1,000 mg PO BID 05/26/16 09/12/20 History metoprolol tartrate 25 mg tablet 25 mg PO BID 05/26/16 09/12/20 History rivaroxaban 20 mg tablet 20 mg PO QDAY 05/26/16 09/12/20 History rosuvastatin 20 mg tablet 20 mg PO QDAY 05/26/16 09/12/20 History spironolactone 25 mg tablet 25 mg PO QDAY 05/26/16 09/12/20 History ascorbic acid (vitamin C) 500 mg 500 mg PO BID 08/01/16 09/12/20 History tablet cholecalciferol (vitamin D3) 25 1,000 unit PO QDAY tab 08/01/16 09/12/20 History mcg (1,000 unit) tablet psyllium seed (sugar) oral powder 2 tbsp PO QDAY each 08/01/16 09/12/20 History omeprazole 40 mg capsule,delayed 40 mg PO QDAY #30 cap 10/24/16 09/12/20 Rx release loratadine 10 mg PO DAILY 06/27/17 09/12/20 History Bipap machine and supplies #1 ea 11/16/18 09/12/20 Rx alogliptin 25 mg tablet 25 mg PO QDAY 02/04/19 09/12/20 History metoclopramide HCl 5 mg tablet 5 mg PO BID PRN #60 tab 08/05/19 09/12/20 Rx insulin glargine 40 unit SUB-Q HS 09/19/19 09/12/20 History glipizide 10 mg tablet 10 mg PO QDAY #90 tab 10/30/19 09/12/20 Rx tramadol 50 mg tablet 100 mg PO Q6H PRN #120 tab 06/18/20 09/12/20 Rx memantine 10 mg tablet 10 mg PO QDAY #90 tab 07/01/20 09/12/20 Rx blood sugar diagnostic #100 each 07/21/20 09/12/20 Rx apixaban 5 mg tablet 5 mg PO BID #90 tab 08/11/20 09/12/20 Rx dulaglutide 4.5 mg/0.5 mL 4.5 mg SUB-Q QWEEK #2 ml 08/11/20 09/12/20 Rx subcutaneous pen injector torsemide 10 mg tablet 10 mg PO BID #160 tab 08/13/20 09/12/20 Rx Oxygen 2LPM at nighttime #1 ea 08/31/20 09/12/20 Rx hydrocortisone applic TOPICAL BID PRN 09/12/20 History Allergies Allergy/AdvReac Type Severity Reaction Status Date / Time adhesive tape Allergy Unknown Tears skin Verified 09/12/20 03:27 off EXAM Constitutional Vitals: Temp Pulse Resp BP Pulse Ox 98.5 F 81 18 112/71 100 09/12/20 09:32 09/12/20 09:32 09/12/20 09:32 09/12/20 09:32 09/12/20 09:32 Exam: General: Awaken but is somnolent, No acute Distress, obese Eyes/N/T: EOMI, PERRL, Head/Neck: neck supple, normocephalic atraumatic, difficult to appreciate any JVD given the thick neck and cordoba CV: irreg irreg, No murmurs, normal s1/s2 Pulm: Clear b/l, no wheezing/rhonchi/rales Abd: soft, nontender, +BS x4 Ext: no clubbing/cyanosis, 2+ b/l LE Neuro: Alert, no focal deficits, moves all extremities, CN 2-12 grossly intact, symmetrical strength b/l upper/lower, sensations intact b/l upper/lower Skin: warm/dry DATA Data Completed and Pending Labs: Labs from last 24 hours 09/12/20 09/12/20 09/12/20 05:53 03:47 03:47 WBC RBC Hgb Hct MCV MCH MCHC RDW Plt Count MPV Neut % (Auto) Lymph % (Auto) [place] % (Auto) Eos % (Auto) Baso % (Auto) Lymph # (Auto) [place] # (Auto) Eos # (Auto) Baso # (Auto) Absolute Neutrophils PT Pending INR Pending Sodium Potassium Chloride Carbon Dioxide Anion Gap BUN Creatinine GFR Calculation Glucose Calcium Total Bilirubin AST ALT Alkaline Phosphatase Troponin T NT-Pro-B Natriuret Pep Total Protein Albumin Globulin Albumin/Globulin Ratio TSH Pending Free T4 Pending Urine Color Yellow Urine Appearance Hazy A Urine pH 5.0 Ur Specific [place] 1.008 Urine Protein 30 A Urine Glucose (UA) Negative Urine Ketones Negative Urine Occult Blood Negative Urine Nitrate Negative Urine Bilirubin Negative Urine Urobilinogen Negative Ur Leukocyte Esterase Negative Urine RBC < 1 Urine WBC 3 Ur Squamous Epith Cells 1 Urine Bacteria None Hyaline Casts 33 H Ur Culture Indicated? No 09/12/20 09/12/20 09/12/20 03:47 03:47 03:47 WBC 8.0 RBC 3.65 L Hgb 10.6 L Hct 33.3 L MCV 91.2 MCH 29.0 MCHC 31.8 RDW 15.6 H Plt Count 215 MPV 10.4 Neut % (Auto) 69.8 Lymph % (Auto) 15.9 [place] % (Auto) 11.6 Eos % (Auto) 1.9 Baso % (Auto) 0.8 Lymph # (Auto) 1.27 L [place] # (Auto) 0.93 H Eos # (Auto) 0.15 Baso # (Auto) 0.06 Absolute Neutrophils 5.59 PT INR Sodium 135 Potassium 4.8 Chloride 103 Carbon Dioxide 19 L Anion Gap 13.0 BUN 55 H Creatinine 2.4 H GFR Calculation 25 Glucose 80 Calcium 9.4 Total Bilirubin 0.8 AST 19 ALT 9 Alkaline Phosphatase 154 H Troponin T 0.05 H* NT-Pro-B Natriuret Pep 4459.0 H Total Protein 7.5 Albumin 3.8 Globulin 3.7 Albumin/Globulin Ratio 1.0 TSH Free T4 Urine Color Urine Appearance Urine pH Ur Specific [place] Urine Protein Urine Glucose (UA) Urine Ketones Urine Occult Blood Urine Nitrate Urine Bilirubin Urine Urobilinogen Ur Leukocyte Esterase Urine RBC Urine WBC Ur Squamous Epith Cells Urine Bacteria Hyaline Casts Ur Culture Indicated? A/P Narrative A/P Narrative: A: *?acute on chronic diastolic/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 Heart failure: -last echo June 2020 *Encephalopathy (Lethargy): pt states did not sleep last night *Generalized weakness/deconditioning: *AFib: On beta-nasrin and Eliquis *CAD: On Eliquis and statin *DM: *HTN/HLD: *Anemia, chronic: *CKD IIIb: *DM w/neuropathy: *Obesity: *JASON on cpap: *Dementia: P: -s/p lasix in ED -check FENa -ABG/CT brain -check tsh/t4 -hold ACEI for chery -cont BB/statin -basal and SSI -home med clarify -pt/ot -CM for placement needs -ppx: Eliquis/home PPI DNR Time Spent With Patient Time: Total time spent is greater than 50% in coordination of care (as documented) at patient's floor/unit and/or counseling patient:
[2020-09-12 10:28] LABS: INR 1.9 (0.9-1.1); Prothrombin Time 22.5 sec (11.9-14.5)
[2020-09-12 10:31] LABS: Free T4 (Free Thyroxine) 0.95 ng/dL (0.93-1.70); Thyroid Stimulating Hormone 10.45 uIU/mL (0.27-5.01)
[2020-09-12] MEDS ORDERED: ACETAMINOPHEN 325 MG TABLET PO PRN (10:32)
[2020-09-12] MEDS ORDERED: SENNOSIDES 1 TABLET PO PRN (10:32)
[2020-09-12] MEDS ORDERED: POTASSIUM CHLORIDE 20 MEQ TABLET PO PRN ×2 (10:32)
[2020-09-12] MEDS ORDERED: DEXTROSE 31 GM ORAL.SUSP PO PRN (10:32)
[2020-09-12] MEDS ORDERED: IPRATROPIUM/ALBUTEROL 3 ML AMPUL.NEB NEB PRN (10:32)
[2020-09-12] MEDS ORDERED: MAGNESIUM SULFATE 2 GM/50 ML BAG IV PRN (10:32)
[2020-09-12] MEDS ORDERED: ONDANSETRON 4 MG/2 ML VIAL IV PRN (10:32)
[2020-09-12] MEDS ORDERED: DEXTROSE 50% 50 ML VIAL IV PRN (10:32)
[2020-09-12] MEDS ORDERED: POTASSIUM CHLORIDE 40 MEQ in DEXTROSE 5% IN WATER 500 ML IV PRN (10:32)
[2020-09-12] MEDS ORDERED: traMADol 50 MG TABLET PO PRN (11:38)
[2020-09-12] MEDS ORDERED: METOCLOPRAMIDE 10 MG TABLET PO PRN (11:44)
[2020-09-12] MEDS: INSULIN LISPRO 1 UNIT/0.01 ML UNIT SQ SCH ×3 (12:59→21:11)
[2020-09-12] MEDS: 0.9 % SODIUM CHLORIDE 10 ML SYRINGE IV SCH ×2 (14:33→21:11)
--- NOTE | 2020-09-12 14:34 | Cat Scan Report ---
INDICATION: ams COMPARISON: Previous MRI scan dated 03/04/2020 TECHNIQUE: Axial noncontrast-enhanced images through the brain. Sagittally and coronally reformatted images. FINDINGS: Cerebral hemispheres:Nonacute right parietal lacunar infarction or possible cyst. No other abnormality. No localized mass effect. No midline shift. There is no hydrocephalus. Brain time is within normal limits No intra-axial hemorrhage Brainstem and cerebellum:No intra-axial abnormality Extra-axial:No acute hemorrhage. No subdural or epidural hematoma. No subarachnoid hemorrhage. Basilar cisterns are normal Calvarial:No calvarial fracture. No lytic lesion Temporal bones are negative. No destructive lesions Soft tissue, orbits, sinuses:Orbits and visualized facial soft tissues and paranasal sinuses are negative IMPRESSION: 1. Negative noncontrast enhanced brain CT scan 2. No significant interval change The exam was performed using radiation dose optimization techniques including, but not limited to, automated exposure control, adjustment of the mA and/or kV according to patient size and use of iterative reconstruction technique. Interpreted and Authenticated by: Freddie Quigley 09/12/20
[2020-09-12] MEDS ORDERED: RIVAROXABAN 15 MG TABLET PO SCH (17:30)
[2020-09-12] MEDS: GABAPENTIN 300 MG CAPSULE PO SCH (19:45)
[2020-09-12] MEDS: METOPROLOL TARTRATE 25 MG TABLET PO SCH (19:45)
[2020-09-12] MEDS: DOCUSATE SODIUM 100 MG CAPSULE PO SCH (19:45)
[2020-09-12] MEDS ORDERED: INSULIN GLARGINE, HUMAN 1 UNIT/0.01 ML SQ SCH (21:00)
[2020-09-12] MEDS ORDERED: MELATONIN 3 MG TABLET PO SCH (21:00)
[2020-09-13] MEDS: 0.9 % SODIUM CHLORIDE 10 ML SYRINGE IV SCH ×4 (05:07→20:18)
[2020-09-13 06:35] LABS: Basophils # (Auto) 0.03 K/mcL (0.00-0.20); Basophils % (Auto) 0.4 % (0.0-2.0); Eosinophils # (Auto) 0.26 K/mcL (0.00-0.70); Eosinophils % (Auto) 3.8 % (0.0-7.0); Hematocrit 33.3 % (41.0-55.0); Hemoglobin 10.5 g/dL (13.5-16.5); Lymphocytes # (Auto) 1.26 K/mcL (1.50-4.80); Lymphocytes % (Auto) 18.3 % (15.0-49.0); Mean Cell Volume 91.5 fL (80.0-100.0); Mean Corpuscular HGB Conc 31.5 g/dL (31.0-36.0); Mean Platelet Volume 10.4 fL (7.4-10.4); Monocytes # (Auto) 0.79 K/mcL (0.10-0.90); Monocytes % (Auto) 11.5 % (1.0-12.0); Platelet Count 198 K/mcL (140-440); RBC 3.64 M/mcL (4.50-5.90); Red Cell Distribution Width 15.7 % (11.5-14.5); WBC 6.9 K/mcL (4.5-11.0)
[2020-09-13 06:57] LABS: ALT/SGPT 10 U/L (<40); AST/SGOT 26 U/L (<40); Albumin 3.6 gm/dL (3.2-5.2); Alkaline Phosphatase 148 U/L (39-117); Bilirubin,Direct 0.3 mg/dL (<0.3); Bilirubin,Total 0.8 mg/dL (0.1-1.0); Blood Urea Nitrogen 52 mg/dL (8-23); Calcium 9.4 mg/dL (8.6-10.4); Carbon Dioxide 23 mmol/L (22-30); Chloride 105 mmol/L (96-108); Globulin 3.5 gm/dL (2.2-3.7); Glomerular Filtration Rate 33; Glucose 152 mg/dL (70-105); Lactate Dehydrogenase 152 U/L (135-225); Phosphorous 3.9 mg/dL (2.5-4.5); Triglycerides 74 mg/dL (<150); Uric Acid 7.9 mg/dL (2.5-8.0)
[2020-09-13] MEDS: INSULIN LISPRO 1 UNIT/0.01 ML UNIT SQ SCH ×4 (07:07→20:17)
[2020-09-13] MEDS ORDERED: glipiZIDE 5 MG TABLET PO SCH (07:30)
[2020-09-13] MEDS ORDERED: PANTOPRAZOLE 40 MG TABLET PO SCH (07:30)
--- NOTE | 2020-09-13 07:46 | Internal Med Progress Note ---
SUBJECTIVE Subjective Patient information: Note initiated : 09/13/20 at 7:38 am Service Date, if different from initiated Date: [] Patient: Oz Cardozo 75 y/o M admitted on 09/12/20 for leg weakness. Chief Complaint: [] Interval history: History of present illness: Mr. Cardozo is a 75 year old M Presents to the ED generalized weakness difficulty walking. Patient has dementia and is a poor historian. Did talk to the and she says that he just seemed little bit weak over the past couple days and not really balances to she just says he is not moving around very much. She does think that his legs are little more swollen. She states his health has been in general decline over the past 6 months. In the ED he had a reaction above baseline. Is felt he was in CHF and given some Lasix. The chest x-ray read as cardiomegaly and probable pulmonary congestion but did not mention any pulmonary edema. Looking at old echo he has severely decreased right ventricular systolic function his LV is 40 to 45% he is severely dilated atria significant tricuspid regard and pulmonary hypertension. says he is been compliant with the CPAP and diuretics lately. 09/13 Patient awake and alert sitting in chair eating breakfast. Feels a little stronger. Review of Systems: denies headache/fever/chills/nausea/vomiting/chest or abdominal pain/cough/dyspnea/diarrhea. Otherwise see above. Constitutional Vitals: Vital Signs Temp Pulse Resp BP Pulse Ox 98.2 F 72 16 111/70 95 09/13/20 04:00 09/13/20 05:41 09/13/20 05:41 09/13/20 04:00 09/13/20 07:21 Period Temp Pulse Resp BP Sys/Sherman Pulse Ox Last 24 Hr 97.5 F-99.3 F 68-90 11-25 89-134/52-90 93-100 Intake and Output 09/12/20 09/13/20 09/13/20 21:59 05:59 13:59 Intake Total 425 350 Output Total 650 4 Balance -225 346 Weight 112.491 kg Intake & Output: Intake & Output 09/12/20 09/13/20 09/13/20 21:59 05:59 13:59 Intake Total 425 350 Output Total 650 4 Balance -225 346 Weight 112.491 kg Intake: Oral 425 350 Output: Void Amount 650 0 # of times incontinent of urine 4 Other: Meal Dinner Percent of Meal Consumed 100% Feeding Ability Assist with Tray Set Up Urine Appearance Clear Clear Urine Color Straw Straw Bright Yellow Urine Odor Normal # Voids 1 # Bowel Movements 0 Exam: General: Awake, No acute Distress, obese Eyes/N/T: EOMI, Head/Neck: neck supple, normocephalic atraumatic, difficult to appreciate any JVD given the thick neck and cordoba CV: irreg irreg, No murmurs Pulm: Clear b/l, no wheezing/rhonchi/rales Abd: soft, nontender, +BS x4 Ext: no clubbing/cyanosis, 1-2+ b/l LE Neuro: Alert, no focal deficits, moves all extremities, Skin: warm/dry OBJ DATA Labs CBC & Chem 7: 09/13/20 05:00 09/13/20 05:00 Labs: Abnormal Lab Results 09/13/20 09/13/20 09/12/20 05:00 05:00 05:53 RBC 3.64 L Hgb 10.5 L Hct 33.3 L RDW 15.7 H Lymph # (Auto) 1.26 L [place] # (Auto) PT INR Carbon Dioxide BUN 52 H Creatinine 1.9 H Glucose 152 H Direct Bilirubin 0.3 H GGT 136 H Alkaline Phosphatase 148 H Troponin T NT-Pro-B Natriuret Pep TSH Urine Appearance Hazy A Urine Protein 30 A Hyaline Casts 33 H 09/12/20 09/12/20 09/12/20 03:47 03:47 03:47 RBC Hgb Hct RDW Lymph # (Auto) [place] # (Auto) PT 22.5 H INR 1.9 H Carbon Dioxide BUN Creatinine Glucose Direct Bilirubin GGT Alkaline Phosphatase Troponin T 0.05 H* NT-Pro-B Natriuret Pep TSH 10.45 H Urine Appearance Urine Protein Hyaline Casts 09/12/20 09/12/20 03:47 03:47 RBC 3.65 L Hgb 10.6 L Hct 33.3 L RDW 15.6 H Lymph # (Auto) 1.27 L [place] # (Auto) 0.93 H PT INR Carbon Dioxide 19 L BUN 55 H Creatinine 2.4 H Glucose Direct Bilirubin GGT Alkaline Phosphatase 154 H Troponin T NT-Pro-B Natriuret Pep 4459.0 H TSH Urine Appearance Urine Protein Hyaline Casts Meds: Medications Acetaminophen (Acetaminophen 325 Mg Tablet) 650 mg PO Q6HP PRN PRN Reason: PAIN/FEVER > 101 Albuterol/Ipratropium (Ipratropium/Albuterol 3 Ml Ampul.Neb) 3 ml NEB Q4HP PRN PRN Reason: Shortness Of Breath Atorvastatin Calcium (Atorvastatin 40 Mg Tablet) 40 mg PO QDAY [facility] Dextrose (Dextrose 50% 50 Ml Vial) 0 ml IV UD PRN PRN Reason: Hypoglycemia Diagnostic Test (Pha) (Accu-Chek 1 Each Strip) 1 each FS [facility] Last Admin: 09/13/20 07:07 Dose: 1 each Documented by: Docusate Sodium (Docusate Sodium 100 Mg Capsule) 100 mg PO BID [facility] Last Admin: 09/12/20 19:45 Dose: 100 mg Documented by: Gabapentin (Gabapentin 300 Mg Capsule) 300 mg PO BID [facility] Last Admin: 09/12/20 19:45 Dose: 300 mg Documented by: Glipizide (Glipizide 5 Mg Tablet) 10 mg PO QAMAC [facility] Last Admin: 09/13/20 07:07 Dose: 10 mg Documented by: Glucose (Dextrose 31 Gm Oral.Susp) 15 gm PO PRN PRN PRN Reason: Hypoglycemia Potassium Chloride 40 meq/ (Dextrose) 520 mls @ 130 mls/hr IV UD PRN PRN Reason: Potassium < 3 Magnesium Sulfate (Magnesium Sulfate) 2 gm in 50 mls @ 50 mls/hr IV UD PRN PRN Reason: Magnesium </= 1.6 Insulin Glargine (Insulin Glargine, Human 1 Unit/0.01 Ml) 40 unit SQ [facility] Last Admin: 09/12/20 21:10 Dose: 40 units Documented by: Insulin Human Lispro (Insulin Lispro 1 Unit/0.01 Ml Unit) 0 unit SQ [facility]; Protocol Last Admin: 09/13/20 07:07 Dose: 2 unit Documented by: Melatonin (Melatonin 3 Mg Tablet) 3 mg PO QHS [facility] Last Admin: 09/12/20 19:45 Dose: 3 mg Documented by: Memantine (Memantine 10 Mg Tablet) 10 mg PO QDAY [facility] Metoclopramide HCl (Metoclopramide 10 Mg Tablet) 5 mg PO BIDP PRN PRN Reason: nausea and vomiting Metoprolol Tartrate (Metoprolol Tartrate 25 Mg Tablet) 25 mg PO BID [facility] Last Admin: 09/12/20 19:45 Dose: 25 mg Documented by: Ondansetron HCl (Ondansetron 4 Mg/2 Ml Vial) 4 mg IV Q4HP PRN PRN Reason: Nausea And Vomiting Pantoprazole Sodium (Pantoprazole 40 Mg Tablet) 40 mg PO QAMAC [facility] Last Admin: 09/13/20 07:07 Dose: 40 mg Documented by: Potassium Chloride (Potassium Chloride 20 Meq Tablet) 40 meq PO UD PRN PRN Reason: Potssium is 3-3.5 Potassium Chloride (Potassium Chloride 20 Meq Tablet) 40 meq PO UD PRN PRN Reason: Potassium < 3 Psyllium Hydrophilic Mucilloid (Psyllium Husk 6 Gm Packet) 6 gm PO DAILY [place] Rivaroxaban (Rivaroxaban 15 Mg Tablet) 15 mg PO QPMCC [facility] Last Admin: 09/12/20 17:06 Dose: 15 mg Documented by: Senna (Sennosides 1 Tablet) 2 tab PO DAILYP PRN PRN Reason: Constipation Sodium Chloride (0.9 % Sodium Chloride 10 Ml Syringe) 10 ml IV Q8 [facility] Last Admin: 09/13/20 05:07 Dose: 10 ml Documented by: Tramadol HCl (Tramadol 50 Mg Tablet) 100 mg PO Q6HP PRN; Protocol PRN Reason: pain A/P Narrative A/P Narrative: A: *Generalized weakness/deconditioning: *JAQUELINE on CKD IIIb: -improving *?acute on chronic diastolic/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 Heart failure: -last echo June 2020 -unable to assess jvd given neck girth and cordoba *Encephalopathy (Lethargy): pt states did not sleep night prior to admission -CT brain no acute -resolved *AFib: On beta-nasrin and Eliquis *CAD: On xaralto and statin *DM: *HTN/HLD: *Anemia, chronic: *CKD IIIb: *DM w/neuropathy: *Obesity: *JASON on cpap: *Dementia: *Subclinical hypothyroidism: TSH 10.45 P: -s/p lasix in ED, hold any further diuresis for now -hold ACEI for jaqueline -start levothyroxine judiciously given underlying afib and tsh >10.0, titrate up outpt -cont BB/statin -basal and SSI -pt/ot -CM for placement needs -ppx: xaralto/home PPI DNR Time Spent With Patient Time: Total time spent is greater than 50% in coordination of care (as documented) at patient's floor/unit and/or counseling patient: QUALITY VTE Deep Vein Thrombosis/Pulmonary Embolism Present on Admission: No
[2020-09-13] MEDS ORDERED: LEVOTHYROXINE 25 MCG TABLET PO SCH (07:50)
[2020-09-13] MEDS: METOPROLOL TARTRATE 25 MG TABLET PO SCH ×2 (07:55→20:17)
[2020-09-13] MEDS: DOCUSATE SODIUM 100 MG CAPSULE PO SCH ×2 (07:55→20:17)
[2020-09-13] MEDS: GABAPENTIN 300 MG CAPSULE PO SCH ×2 (07:56→20:19)
[2020-09-13] MEDS ORDERED: PSYLLIUM HUSK 6 GM PACKET PO SCH (09:00)
[2020-09-13] MEDS ORDERED: ATORVASTATIN 40 MG TABLET PO SCH (09:00)
[2020-09-13] MEDS ORDERED: MEMANTINE 10 MG TABLET PO SCH (09:00)
--- NOTE | 2020-09-13 09:29 | XRay Report ---
INDICATION: f/u abnormal film TECHNIQUE: AP portable upright chest x-ray COMPARISON: Previous chest x-rays dated 09/12/2020, 04/07/2020 FINDINGS: Lungs:Lungs are negative. No focal pulmonary parenchymal infiltrate or mass Heart, vascular:There is cardiomegaly, unchanged. Appearance consistent with pulmonary congestion. There is peribronchial thickening but no interlobular septal thickening. No alveolar infiltrates. Mediastinum, lanie:No mediastinal widening. No hilar mass Pleura:No pleural fluid. No pleural-based mass or calcification Skeletal:Negative. IMPRESSION: 1. Cardiomegaly and probable pulmonary congestion 2. No focal pulmonary parenchymal infiltrate or mass Interpreted and Authenticated by: Freddie Quigley 09/13/20
[2020-09-13] MEDS ORDERED: SENNOSIDES 1 TABLET PO PRN (13:32)
[2020-09-13] MEDS ORDERED: MAGNESIUM SULFATE 2 GM/50 ML BAG IV PRN (13:32)
[2020-09-13] MEDS ORDERED: DEXTROSE 31 GM ORAL.SUSP PO PRN (13:32)
[2020-09-13] MEDS ORDERED: traMADol 50 MG TABLET PO PRN (13:32)
[2020-09-13] MEDS ORDERED: IPRATROPIUM/ALBUTEROL 3 ML AMPUL.NEB NEB PRN (13:32)
[2020-09-13] MEDS ORDERED: POTASSIUM CHLORIDE 20 MEQ TABLET PO PRN ×2 (13:32)
[2020-09-13] MEDS ORDERED: METOCLOPRAMIDE 10 MG TABLET PO PRN (13:32)
[2020-09-13] MEDS ORDERED: ONDANSETRON 4 MG/2 ML VIAL IV PRN (13:32)
[2020-09-13] MEDS ORDERED: DEXTROSE 50% 50 ML VIAL IV PRN (13:32)
[2020-09-13] MEDS ORDERED: POTASSIUM CHLORIDE 40 MEQ in DEXTROSE 5% IN WATER 500 ML IV PRN (13:32)
[2020-09-13] MEDS ORDERED: ACETAMINOPHEN 325 MG TABLET PO PRN (13:32)
--- NOTE | 2020-09-13 16:49 | Discharge Summary ---
Discharge Provider Provider Patient information: Note initiated : 09/13/20 at 4:48 pm Service Date, if different from initiated Date: [] Patient: Oz Cardozo 75 y/o M admitted on 09/12/20 for leg weakness. Chief Complaint: [] Date of admission: 09/12/20 09:30 Discharge date: 09/15/20 Primary care physician: Freddie Randolph DO Consults: 09/12/20 Consult to Physician [CONS] Stat Comment: Consulting Provider: Navneet Wing Reason For Exam: Physician to Consult Discharge Meds Discharge Medications Home Medications metoprolol tartrate 25 mg tablet 25 mg PO BID 05/26/16 [History Confirmed 09/12/20 Last Taken 09/11/20] rivaroxaban 20 mg tablet 20 mg PO QDAY 05/26/16 [History Confirmed 09/12/20 Last Taken 09/11/20] rosuvastatin 20 mg tablet 20 mg PO QDAY 05/26/16 [History Confirmed 09/12/20 Last Taken 09/11/20] spironolactone 25 mg tablet 25 mg PO QDAY 05/26/16 [History Confirmed 09/12/20 Last Taken 09/11/20] cholecalciferol (vitamin D3) 25 mcg (1,000 unit) tablet 1,000 unit PO QDAY tab 08/01/16 [History Confirmed 09/12/20 Last Taken 09/11/20] psyllium seed (sugar) oral powder 2 tbsp PO QDAY each 08/01/16 [History Confirmed 09/12/20 Last Taken 09/11/20] omeprazole 40 mg capsule,delayed release 40 mg PO QDAY #30 cap 10/24/16 [Rx Confirmed 09/12/20 Last Taken 09/11/20] Bipap machine and supplies #1 ea 11/16/18 [Rx Confirmed 09/12/20 Last Taken Unknown] metoclopramide HCl 5 mg tablet 5 mg PO BID PRN #60 tab 08/05/19 [Rx Confirmed 09/12/20 Last Taken 09/11/20] insulin glargine 40 unit SUB-Q HS 09/19/19 [History Confirmed 09/12/20 Last Taken 09/11/20] tramadol 50 mg tablet 100 mg PO Q6H PRN #120 tab 06/18/20 [Rx Confirmed 09/12/20 Last Taken 09/11/20] memantine 10 mg tablet 10 mg PO QDAY #90 tab 07/01/20 [Rx Confirmed 09/12/20 Last Taken 09/11/20] blood sugar diagnostic #100 each 07/21/20 [Rx Confirmed 09/12/20 Last Taken Unknown] dulaglutide 4.5 mg/0.5 mL subcutaneous pen injector 4.5 mg SUB-Q QWEEK #2 ml 08/11/20 [Rx Confirmed 09/12/20 Last Taken Unknown] torsemide 10 mg tablet 10 mg PO BID #160 tab 08/13/20 [Rx Confirmed 09/12/20 Last Taken 09/11/20] Oxygen 2LPM at nighttime #1 ea 08/31/20 [Rx Confirmed 09/12/20 Last Taken Unknown] alogliptin 12.5 mg PO QDAY #10 tab 09/13/20 [Rx Last Taken Unknown] ascorbic acid (vitamin C) 500 mg PO DAILY #1 tab 09/13/20 [Rx Last Taken Unknown] gabapentin 600 mg PO BID #1 cap 09/13/20 [Rx Last Taken Unknown] levothyroxine 25 mcg PO QAMAC #30 tab 09/13/20 [Rx Last Taken Unknown] loratadine 10 mg PO PRN PRN #1 tab 09/13/20 [Rx Last Taken Unknown] allopurinol 100 mg PO QDAY #20 tab 09/15/20 [Rx Last Taken Unknown] lisinopril 5 mg PO QDAY #30 tab 09/15/20 [Rx Last Taken Unknown] COURSE Hospital Course Hospital course: Interval history: History of present illness: Mr. Cardozo is a 75 year old M Presents to the ED generalized weakness difficulty walking. Patient has dementia and is a poor historian. Did talk to the and she says that he just seemed little bit weak over the past couple days and not really balances to she just says he is not moving around very much. She does think that his legs are little more swollen. She states his health has been in general decline over the past 6 months. In the ED he had a reaction above baseline. Is felt he was in CHF and given some Lasix. The chest x-ray read as cardiomegaly and probable pulmonary congestion but did not mention any pulmonary edema. Looking at old echo he has severely decreased right ventricular systolic function his LV is 40 to 45% he is severely dilated atria significant tricuspid regard and pulmonary hypertension. says he is been compliant with the CPAP and diuretics lately. 09/13 Patient awake and alert sitting in chair eating breakfast. Feels a little stronger. has strength and sensations in both legs. Per history from daughter she says it seems he can walk but there is a disconnect between his brain and legs. He is seeing a neurologist who did an LP several months ago, not sure what else. it will be important for him to closely f/u with the neurologist 09/14 Patient doing well. States he is feeling a little bit stronger little more energetic. Renal function much improved. Unable to be placed today as retirement facility but it is set up for tomorrow. 09/15 No overnight event or new complaints. Stable for discharge. Follow closely with neurologist. 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 Chronic kidney disease, encephalopathy Secondary discharge diagnosis: A. fib CAD diabetes hypertension chronic anemia chronic kidney disease diabetes obesity obstructive sleep apnea dementia subclinical hypothyroidism Time Spent with Patient Time attestation: Total time spent providing and/or coordinating discharge services: Time spent: Greater than 30 minutes EXAM Constitutional Vitals: Temp Pulse Resp BP Pulse Ox 98.9 F 81 15 124/73 97 09/13/20 16:01 09/13/20 16:01 09/13/20 16:01 09/13/20 16:01 09/13/20 16:01 Discharge Data Data Completed and Pending Labs on day of discharge: Labs from last 24 hours 09/13/20 09/13/20 05:00 05:00 WBC 6.9 RBC 3.64 L Hgb 10.5 L Hct 33.3 L MCV 91.5 MCH 28.8 MCHC 31.5 RDW 15.7 H Plt Count 198 MPV 10.4 Neut % (Auto) 66.0 Lymph % (Auto) 18.3 [place] % (Auto) 11.5 Eos % (Auto) 3.8 Baso % (Auto) 0.4 Lymph # (Auto) 1.26 L [place] # (Auto) 0.79 Eos # (Auto) 0.26 Baso # (Auto) 0.03 Absolute Neutrophils 4.53 Sodium 138 Potassium 4.7 Chloride 105 Carbon Dioxide 23 Anion Gap 10.0 BUN 52 H Creatinine 1.9 H GFR Calculation 33 Glucose 152 H Uric Acid 7.9 Calcium 9.4 Phosphorus 3.9 Magnesium 1.6 Total Bilirubin 0.8 Direct Bilirubin 0.3 H GGT 136 H AST 26 ALT 10 Alkaline Phosphatase 148 H Lactate Dehydrogenase 152 Total Protein 7.1 Albumin 3.6 Globulin 3.5 Albumin/Globulin Ratio 1.0 Triglycerides 74 Discharge Plan Patient/Caregiver Discharge Instructions Activity: increase activity as tolerated and other Diet: Consistent Carbohydrate Activity Restrictions/Additional Instructions: -Monitor blood pressure twice daily -f/u thyroid fxn tests outpt with PCP 4-6 weeks -monitor BG tid before meals, insulin may need to be adjusted *decrease Lisinopril for low BP *started levothyroxine, will need to be titrated up *renally dosed allopurinol/alogliptin/gabapentin *d/c'd sulfonylurea given underlying CKD/CHF *d/c'd metformin given degree of CKD Prescriptions: New levothyroxine 25 mcg Tablet 25 mcg PO QAMAC Qty: 30 RF: 0 allopurinol 100 mg tablet 100 mg PO QDAY Qty: 20 RF: 0 lisinopril 5 mg tablet 5 mg PO QDAY Qty: 30 RF: 0 Continued (DME) Bipap machine and supplies Qty: 1 RF: 0 metoclopramide HCl [Reglan] 5 mg tablet 5 mg PO BID PRN (Reason: nausea and vomiting) Qty: 60 RF: 3 tramadol 50 mg tablet 100 mg PO Q6H PRN (Reason: pain) Qty: 120 RF: 0 memantine 10 mg tablet 10 mg PO QDAY Qty: 90 RF: 0 (DME) FreeStyle Lite Strips Strip See Dose Instructions .ROUTE .MEDSUPPLY Qty: 100 RF: 7 torsemide 10 mg tablet 10 mg PO BID Qty: 160 RF: 1 (DME) Oxygen 2LPM at nighttime See Rx Instructions .Route .MEDSUPPLY Qty: 1 RF: 0 insulin glargine 40 unit SUB-Q HS RF: 0 metoprolol tartrate 25 mg tablet 25 mg PO BID RF: 0 spironolactone 25 mg tablet 25 mg PO QDAY RF: 0 rivaroxaban [Xarelto] 20 mg tablet 20 mg PO QDAY RF: 0 rosuvastatin [Crestor] 20 mg tablet 20 mg PO QDAY RF: 0 cholecalciferol (vitamin D3) 1,000 unit tablet 1,000 unit PO QDAY RF: 0 psyllium seed (sugar) [Metamucil (sugar)] powder 2 tbsp PO QDAY RF: 0 omeprazole 40 mg capsule,delayed release(DR/EC) 40 mg PO QDAY Qty: 30 RF: 5 Trulicity 4.5 mg/0.5 mL pen injector 4.5 mg SUB-Q QWEEK Qty: 2 RF: 11 Changed ascorbic acid (vitamin C) 500 mg tablet 500 mg PO DAILY Qty: 1 RF: 0 gabapentin 300 mg capsule 600 mg PO BID Qty: 1 RF: 0 loratadine 10 MG tablet 10 mg PO PRN PRN (Reason: allergies) Qty: 1 RF: 0 alogliptin 25 mg tablet 12.5 mg PO QDAY Qty: 10 RF: 0 Discontinued glipizide 10 mg tablet 10 mg PO QDAY Qty: 90 RF: 3 metformin 1,000 mg tablet 1,000 mg PO BID RF: 0 lisinopril 40 mg tablet 40 mg PO QDAY RF: 0 allopurinol 300 mg tablet 300 mg PO QDAY RF: 0 Follow Up Plan Follow up with: Freddie Randolph DO [Primary Care Provider] - Kirti-Karon Cotto MD [Physician] - (walking difficulty) Patient Disposition: Xfer SNF Prognosis: Fair Rehab Potential: Fair I certify that the patient requires SNF services: Yes Overall status at discharge: patient is progressing back to baseline Discharge Orders: Discharge Order (Routine); Ordered 09/15/20 Ordered By: Navneet Wing [facility] VTE Deep Vein Thrombosis/Pulmonary Embolism Present on Admission: No
[2020-09-13] MEDS: RIVAROXABAN 15 MG TABLET PO SCH (17:23)
[2020-09-13] MEDS: INSULIN GLARGINE, HUMAN 1 UNIT/0.01 ML SQ SCH (20:16)
[2020-09-13] MEDS: MELATONIN 3 MG TABLET PO SCH (20:17)
[2020-09-14] MEDS: 0.9 % SODIUM CHLORIDE 10 ML SYRINGE IV SCH ×3 (05:42→21:03)
[2020-09-14 07:10] LABS: Blood Urea Nitrogen 45 mg/dL (8-23); Calcium 9.4 mg/dL (8.6-10.4); Carbon Dioxide 21 mmol/L (22-30); Chloride 104 mmol/L (96-108); Glomerular Filtration Rate 41; Glucose 122 mg/dL (70-105)
[2020-09-14] MEDS ORDERED: glipiZIDE 5 MG TABLET PO SCH (07:30)
[2020-09-14] MEDS: PANTOPRAZOLE 40 MG TABLET PO SCH (07:34)
[2020-09-14] MEDS: INSULIN LISPRO 1 UNIT/0.01 ML UNIT SQ SCH ×4 (07:34→21:03)
[2020-09-14] MEDS: LEVOTHYROXINE 25 MCG TABLET PO SCH (07:34)
[2020-09-14] MEDS: DOCUSATE SODIUM 100 MG CAPSULE PO SCH ×2 (08:48→21:01)
[2020-09-14] MEDS: PSYLLIUM HUSK 6 GM PACKET PO SCH (08:48)
[2020-09-14] MEDS: MEMANTINE 10 MG TABLET PO SCH (08:49)
[2020-09-14] MEDS: GABAPENTIN 300 MG CAPSULE PO SCH ×2 (08:49→21:01)
[2020-09-14] MEDS: ATORVASTATIN 40 MG TABLET PO SCH (08:49)
[2020-09-14] MEDS: METOPROLOL TARTRATE 25 MG TABLET PO SCH ×2 (08:49→21:02)
--- NOTE | 2020-09-14 15:36 | Internal Med Progress Note ---
SUBJECTIVE Subjective Patient information: Note initiated : 09/14/20 at 3:34 pm Service Date, if different from initiated Date: [] Patient: Oz Cardozo 75 y/o M admitted on 09/12/20 for leg weakness. Chief Complaint: [] Interval history: History of present illness: Mr. Cardozo is a 75 year old M Presents to the ED generalized weakness difficulty walking. Patient has dementia and is a poor historian. Did talk to the and she says that he just seemed little bit weak over the past couple days and not really balances to she just says he is not moving around very much. She does think that his legs are little more swollen. She states his health has been in general decline over the past 6 months. In the ED he had a reaction above baseline. Is felt he was in CHF and given some Lasix. The chest x-ray read as cardiomegaly and probable pulmonary congestion but did not mention any pulmonary edema. Looking at old echo he has severely decreased right ventricular systolic function his LV is 40 to 45% he is severely dilated atria significant tricuspid regard and pulmonary hypertension. says he is been compliant with the CPAP and diuretics lately. 4/4 Patient awake and alert sitting in chair eating breakfast. Feels a little stronger. 4/5 Patient doing well. States he is feeling a little bit stronger little more kylah rgetic. Renal function much improved. [facility] be [facility] but it is set up for tomorrow. Review of Systems: denies headache/fever/chills/nausea/vomiting/chest or abdominal pain/cough/dyspnea/diarrhea. Otherwise see above. Constitutional Vitals: Vital Signs Temp Pulse Resp BP Pulse Ox 98.4 F 75 18 91/79 96 09/14/20 12:01 09/14/20 12:01 09/14/20 12:01 09/14/20 12:01 09/14/20 12:01 Period Temp Pulse Resp BP Sys/[place] Pulse Ox Last 24 Hr 98.1 F-98.9 F 75-84 15-20 91-132/66-79 93-97 Intake and Output 09/14/20 09/14/20 09/14/20 05:59 13:59 21:59 Intake Total 200 595 Output Total 3 1 Balance 197 594 Weight 111.947 kg Patient Weight 09/15/20 05:59 Weight 111.947 kg Intake & Output: Intake & Output 09/14/20 09/14/20 09/14/20 05:59 13:59 21:59 Intake Total 200 595 Output Total 3 1 Balance 197 594 Weight 111.947 kg Intake: Oral 200 595 Output: # of times incontinent of urine 3 1 Other: Meal Lunch Percent of Meal Consumed 75% Urine Color [place] Stool Size Large Stool Color Brown Stool Consistency Soft Formed # Bowel Movements 0 1 Exam: General: Awake, No acute Distress, obese Eyes/N/T: EOMI, Head/Neck: neck supple, normocephalic atraumatic, difficult to appreciate any JVD given the thick neck and cordoba CV: irreg irreg, No murmurs Pulm: Clear b/l, no wheezing/rhonchi/rales Abd: soft, nontender, +BS x4 Ext: no clubbing/cyanosis, 1+ b/l LE Neuro: Alert, no focal deficits, moves all extremities, Skin: warm/dry OBJ DATA Labs CBC & Chem 7: 09/13/20 05:00 09/14/20 05:00 Labs: Abnormal Lab Results 09/14/20 09/13/20 09/13/20 05:00 05:00 05:00 RBC 3.64 L Hgb 10.5 L Hct 33.3 L RDW 15.7 H Lymph # (Auto) 1.26 L [place] # (Auto) PT INR Carbon Dioxide 21 L BUN 45 H 52 H Creatinine 1.6 H 1.9 H Glucose 122 H 152 H Direct Bilirubin 0.3 H GGT 136 H Alkaline Phosphatase 148 H Troponin T NT-Pro-B Natriuret Pep TSH Urine Appearance Urine Protein Hyaline Casts 09/12/20 09/12/20 09/12/20 05:53 03:47 03:47 RBC Hgb Hct RDW Lymph # (Auto) [place] # (Auto) PT 22.5 H INR 1.9 H Carbon Dioxide BUN Creatinine Glucose Direct Bilirubin GGT Alkaline Phosphatase Troponin T NT-Pro-B Natriuret Pep TSH 10.45 H Urine Appearance Hazy A Urine Protein 30 A Hyaline Casts 33 H 09/12/20 09/12/20 09/12/20 03:47 03:47 03:47 RBC 3.65 L Hgb 10.6 L Hct 33.3 L RDW 15.6 H Lymph # (Auto) 1.27 L [place] # (Auto) 0.93 H PT INR Carbon Dioxide 19 L BUN 55 H Creatinine 2.4 H Glucose Direct Bilirubin GGT Alkaline Phosphatase 154 H Troponin T 0.05 H* NT-Pro-B Natriuret Pep 4459.0 H TSH Urine Appearance Urine Protein Hyaline Casts Meds: Medications Acetaminophen (Acetaminophen 325 Mg Tablet) 650 mg PO Q6HP PRN PRN Reason: PAIN/FEVER > 101 Albuterol/Ipratropium (Ipratropium/Albuterol 3 Ml Ampul.Neb) 3 ml NEB Q4HP PRN PRN Reason: Shortness Of Breath Atorvastatin Calcium (Atorvastatin 40 Mg Tablet) 40 mg PO QDAY [facility] Last Admin: 09/14/20 08:49 Dose: 40 mg Documented by: Dextrose (Dextrose 50% 50 Ml Vial) 0 ml IV UD PRN PRN Reason: Hypoglycemia Diagnostic Test (Pha) (Accu-Chek 1 Each Strip) 1 each FS [facility] Last Admin: 09/14/20 12:19 Dose: 1 each Documented by: Docusate Sodium (Docusate Sodium 100 Mg Capsule) 100 mg PO BID [facility] Last Admin: 09/14/20 08:48 Dose: 100 mg Documented by: Gabapentin (Gabapentin 300 Mg Capsule) 300 mg PO BID [facility] Last Admin: 09/14/20 08:49 Dose: 300 mg Documented by: Glucose (Dextrose 31 Gm Oral.Susp) 15 gm PO PRN PRN PRN Reason: Hypoglycemia Magnesium Sulfate (Magnesium Sulfate) 2 gm in 50 mls @ 50 mls/hr IV UD PRN PRN Reason: Magnesium </= 1.6 Potassium Chloride 40 meq/ (Dextrose) 520 mls @ 130 mls/hr IV UD PRN PRN Reason: Potassium < 3 Insulin Glargine (Insulin Glargine, Human 1 Unit/0.01 Ml) 40 unit SQ [facility] Last Admin: 09/13/20 20:16 Dose: 40 units Documented by: Insulin Human Lispro (Insulin Lispro 1 Unit/0.01 Ml Unit) 0 unit SQ [facility]; Protocol Last Admin: 09/14/20 11:58 Dose: Not Given Documented by: Levothyroxine Sodium (Levothyroxine 25 Mcg Tablet) 25 mcg PO QAMAC [facility] Last Admin: 09/14/20 07:34 Dose: 25 mcg Documented by: Melatonin (Melatonin 3 Mg Tablet) 3 mg PO QHS [facility] Last Admin: 09/13/20 20:17 Dose: 3 mg Documented by: Memantine (Memantine 10 Mg Tablet) 10 mg PO QDAY [facility] Last Admin: 09/14/20 08:49 Dose: 10 mg Documented by: Metoprolol Tartrate (Metoprolol Tartrate 25 Mg Tablet) 25 mg PO BID [facility] Last Admin: 09/14/20 08:49 Dose: 25 mg Documented by: Ondansetron HCl (Ondansetron 4 Mg/2 Ml Vial) 4 mg IV Q4HP PRN PRN Reason: Nausea And Vomiting Pantoprazole Sodium (Pantoprazole 40 Mg Tablet) 40 mg PO QAMAC [facility] Last Admin: 09/14/20 07:34 Dose: 40 mg Documented by: Potassium Chloride (Potassium Chloride 20 Meq Tablet) 40 meq PO UD PRN PRN Reason: Potssium is 3-3.5 Potassium Chloride (Potassium Chloride 20 Meq Tablet) 40 meq PO UD PRN PRN Reason: Potassium < 3 Psyllium Hydrophilic Mucilloid (Psyllium Husk 6 Gm Packet) 6 gm PO DAILY [facility] Last Admin: 09/14/20 08:48 Dose: 6 gm Documented by: Rivaroxaban (Rivaroxaban 15 Mg Tablet) 15 mg PO QPMCC [facility] Last Admin: 09/13/20 17:23 Dose: 15 mg Documented by: Senna (Sennosides 1 Tablet) 2 tab PO DAILYP PRN PRN Reason: Constipation Sodium Chloride (0.9 % Sodium Chloride 10 Ml Syringe) 10 ml IV Q8 [facility] Last Admin: 09/14/20 13:54 Dose: 10 ml Documented by: Tramadol HCl (Tramadol 50 Mg Tablet) 100 mg PO Q6HP PRN; Protocol PRN Reason: pain A/P Narrative A/P Narrative: A: *Generalized weakness/deconditioning: *JAQUELINE on CKD IIIb: -improving *chronic diastolic/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 Heart failure: -last echo June 2020 -unable to assess jvd given neck girth and cordoba *Encephalopathy (Lethargy): pt states did not sleep night prior to admission -CT brain no acute -resolved *AFib: On beta-nasrin and Eliquis *CAD: On xaralto and statin *DM: *HTN/HLD: *Anemia, chronic: *CKD IIIb: *DM w/neuropathy: *Obesity: *JASON on cpap: *Dementia: *Subclinical hypothyroidism: TSH 10.45 P: -s/p lasix in ED, hold any further diuresis for now -hold ACEI for jaqueline -started levothyroxine judiciously given underlying afib and tsh >10.0, titrate up outpt -cont BB/statin -basal and SSI -pt/ot -awaiting placement, set up for tomorrow -ppx: xaralto/home PPI DNR Time Spent With Patient Time: Total time spent is greater than 50% in coordination of care (as documented) at patient's floor/unit and/or counseling patient: [facility] VTE Deep Vein Thrombosis/Pulmonary Embolism Present on Admission: No
[2020-09-14] MEDS: RIVAROXABAN 15 MG TABLET PO SCH (18:02)
[2020-09-14] MEDS: INSULIN GLARGINE, HUMAN 1 UNIT/0.01 ML SQ SCH (21:02)
[2020-09-14] MEDS: MELATONIN 3 MG TABLET PO SCH (21:02)
[2020-09-15] MEDS: 0.9 % SODIUM CHLORIDE 10 ML SYRINGE IV SCH ×2 (03:53→04:17)
[2020-09-15] MEDS: PANTOPRAZOLE 40 MG TABLET PO SCH (07:14)
[2020-09-15] MEDS: LEVOTHYROXINE 25 MCG TABLET PO SCH (07:15)
[2020-09-15] MEDS: INSULIN LISPRO 1 UNIT/0.01 ML UNIT SQ SCH (07:15)
[2020-09-15] MEDS: METOPROLOL TARTRATE 25 MG TABLET PO SCH (08:47)
[2020-09-15] MEDS: ATORVASTATIN 40 MG TABLET PO SCH (08:47)
[2020-09-15] MEDS: GABAPENTIN 300 MG CAPSULE PO SCH (08:47)
[2020-09-15] MEDS: MEMANTINE 10 MG TABLET PO SCH (08:47)
[2020-09-15] MEDS: DOCUSATE SODIUM 100 MG CAPSULE PO SCH (08:47)
[2020-09-15] MEDS: PSYLLIUM HUSK 6 GM PACKET PO SCH (08:47)
[2020-09-15] MEDS ORDERED: LISINOPRIL 5 MG TABLET PO SCH (09:00)
== END 2020-09-15 09:55 | DRG 948 ==
LOC: ED 03:17 → ICU 09:29 → MEDSUR 09-14 18:09
PROVIDERS: ADMIT Internal Medicine; ATTEND Internal Medicine